=== PATIENT | male | born 1965 | race Caucasian/White ===

== ENCOUNTER 2019-12-26 15:08 | Observation (INO) | payer BC, OTHER ==
[~2019-12-26] VITALS: Ht 172.7 cm; Wt 98.6 kg
--- NOTE | 2019-12-26 15:22 | ED Abdominal Pain ---
General Stated Complaint: LOWER BACK PAIN, ABD PAIN Source of Information: Patient Exam Limitations: No Limitations History of Present Illness Date Seen by Provider: Dec 26, 2019 Time Seen by Provider: 15:22 Initial Comments 54-year-old male presents with abdominal pain. Feels like he has "a lot of gas" patient reports that it started around 11/24/29 this morning. The had some dry heaves I was little bit nauseated. He has some mild pain in his back. He reports had some dark urine. No fevers chills cough. Patient reports he is passing gas. He denies chest pain. Allergies and Home Medications Allergies Coded Allergies: No Known Drug Allergies (Unverified , 12/26/19) Home Medications Hydrocodone/Acetaminophen 1 Each Tablet, 1 EACH PO Q6H Prescribed by: EWELINA BEYER on 12/26/191735 Ondansetron 4 Mg Tab.rapdis, 4 MG PO Q6H PRN for NAUSEA/VOMITING Prescribed by: EWELINA BEYER on 12/26/191734 Sulfamethoxazole/Trimethoprim 1 Each Tablet, 1 EACH PO BID Prescribed by: EWELINA BEYER on 12/26/191734 Patient Home Medication List Home Medication List Reviewed: Yes Review of Systems Review of Systems Constitutional: No chills, No fever; malaise Respiratory: Denies Cough, Denies Shortness of Air Cardiovascular: Denies Chest Pain Gastrointestinal: Abdominal Pain, Nausea, Vomiting (dry heaves) Genitourinary: See HPI Musculoskeletal: back pain Skin: no symptoms reported Psychiatric/Neurological: No Symptoms Reported Endocrine: No Symptoms Reported Past Jgymjji-Xjlqln-Pvtaem Hx Past Med/Social Hx: Reviewed Nursing Past Med/Soc Hx Patient Social History Recent Foreign Travel: No Contact w/Someone Who Travel: No Physical Exam Vital Signs Vital Signs - First Documented 12/26/19 15:10 Temp 36.5 Pulse 86 Resp 18 B/P (MAP) 147/101 (116) Pulse Ox 97 Capillary Refill : Height/Weight/BMI Height: '" Weight: lbs. oz. kg; BMI Method: General Appearance: WD/WN, no apparent distress Respiratory: lungs clear, normal breath sounds Cardiovascular: normal peripheral pulses, regular rate, rhythm, no edema Gastrointestinal: soft; No rebound; tenderness (mild diffuse) Back: CVA tenderness (L) Neurologic/Psychiatric: alert, normal mood/affect, oriented x 3 Skin: normal color, warm/dry Progress/Results/Core Measures Results/Orders Lab Results Laboratory Tests Test 12/26/19 15:20 12/26/19 16:01 Range/Units White Blood Count 11.8 H 4.3-11.0 10^3/uL Red Blood Count 4.95 4.35-5.85 10^6/uL Hemoglobin 15.7 13.3-17.7 G/DL Hematocrit 45 40-54 % Mean Corpuscular Volume 91 80-99 FL Mean Corpuscular Hemoglobin 32 25-34 PG Mean Corpuscular Hemoglobin Concent 35 32-36 G/DL Red Cell Distribution Width 13.2 10.0-14.5 % Platelet Count 194 130-400 10^3/uL Mean Platelet Volume 10.2 7.4-10.4 FL Neutrophils (%) (Auto) 86 H 42-75 % Lymphocytes (%) (Auto) 5 L 12-44 % Monocytes (%) (Auto) 8 0-12 % Eosinophils (%) (Auto) 0 0-10 % Basophils (%) (Auto) 0 0-10 % Neutrophils # (Auto) 10.1 H 1.8-7.8 X 10^3 Lymphocytes # (Auto) 0.6 L 1.0-4.0 X 10^3 Monocytes # (Auto) 1.0 0.0-1.0 X 10^3 Eosinophils # (Auto) 0.0 0.0-0.3 10^3/uL Basophils # (Auto) 0.0 0.0-0.1 10^3/uL Neutrophils % (Manual) 88 % Lymphocytes % (Manual) 3 % Monocytes % (Manual) 9 % Eosinophils % (Manual) 0 % Basophils % (Manual) 0 % Band Neutrophils 0 % Blood Morphology Comment NORMAL Sodium Level 139 135-145 MMOL/L Potassium Level 3.8 3.6-5.0 MMOL/L Chloride Level 107 98-107 MMOL/L Carbon Dioxide Level 19 L 21-32 MMOL/L Anion Gap 13 5-14 MMOL/L Blood Urea Nitrogen 23 H 7-18 MG/DL Creatinine 1.49 H 0.60-1.30 MG/DL Estimat Glomerular Filtration Rate 49 BUN/Creatinine Ratio 15 Glucose Level 148 H 70-105 MG/DL Calcium Level 9.3 8.5-10.1 MG/DL Corrected Calcium 8.9 8.5-10.1 MG/DL Total Bilirubin 1.4 H 0.1-1.0 MG/DL Aspartate Amino Transf (AST/SGOT) 20 5-34 U/L Alanine Aminotransferase (ALT/SGPT) 17 0-55 U/L Alkaline Phosphatase 83 40-136 U/L Total Protein 7.3 6.4-8.2 GM/DL Albumin 4.5 3.2-4.5 GM/DL Urine Color YELLOW Urine Clarity CLEAR Urine pH 5.5 5-9 Urine Specific [place] >=1.030 1.016-1.022 Urine Protein 1+ H NEGATIVE Urine Glucose (UA) NEGATIVE NEGATIVE Urine Ketones 1+ H NEGATIVE Urine Nitrite NEGATIVE NEGATIVE Urine Bilirubin 1+ H NEGATIVE Urine Urobilinogen 0.2 < = 1.0 MG/DL Urine Leukocyte Esterase NEGATIVE NEGATIVE Urine RBC (Auto) 3+ H NEGATIVE Urine RBC 25-50 H /HPF Urine WBC 0-2 /HPF Urine Squamous Epithelial Cells NONE /HPF Urine Crystals NONE /LPF Urine Bacteria NEGATIVE /HPF Urine Casts NONE /LPF Urine Mucus MODERATE H /LPF Urine Culture Indicated NO My Orders Orders - EWELINA BEYER DO Comprehensive Metabolic Panel (12/26/19 15:23) Ua Culture If Indicated (12/26/19 15:23) Ed Iv/Invasive Line Start (12/26/19 15:23) Acute Abd Series (12/26/19 15:23) Cbc With Automated Diff (12/26/19 15:23) Ketorolac Injection (Toradol Injection) (12/26/19 15:30) Ed Iv/Invasive Line Start (12/26/19 15:23) Ns Iv 1000 Ml (Sodium Chloride 0.9%) (12/26/19 15:23) Manual Differential (12/26/19 15:20) Ct Abd/Pelvis Wo(Kidney Stone) (12/26/19 16:28) Ceftriaxone For Iv Use (Rocephin For I (12/26/19 17:30) Ketorolac Injection (Toradol Injection) (12/26/19 17:27) Medications Given in ED Current Medications Medications Dose Ordered Sig/Hawk Route Start Time Stop Time Status Last Admin Dose Admin Ceftriaxone Sodium 1000 mg/ Sterile Water 10 ml @ 200 mls/hr ONCE ONCE IV 12/26/19 17:30 12/26/19 17:32 DC 12/26/19 17:34 200 MLS/HR Ketorolac Tromethamine 15 mg ONCE ONCE IVP 12/26/19 15:30 12/26/19 15:31 DC 12/26/19 15:38 15 MG Vital Signs/I&O 12/26/19 12/26/19 15:10 17:44 Temp 36.5 36.5 Pulse 86 86 Resp 18 18 B/P (MAP) 147/101 (116) 147/101 (116) Pulse Ox 97 97 Diagnostic Imaging Comments [facility] [place], [place] NAME: NEDRA HUYNH [facility] REC#: [id number] PT STATUS: REG ER : 1965 PHYSICIAN: EWELINA BEYER DO ADMIT DATE: 12/26/19/ER Draft Date of Exam:12/26/19 ACUTE ABD SERIES INDICATION: Abdominal pain. COMPARISON: None. FINDINGS: Supine and upright views of the abdomen show a nondistended bowel gas pattern. No abnormal air fluid levels or free intraperitoneal air is seen. 7-8 mm extraosseous calcification is identified slightly lateral and superior to the right L3 transverse process. This is felt to potentially represent a calculus within the proximal right ureter. Bony and soft tissue structures are within normal limits. No organomegaly is identified. Accompanying upright chest shows normal heart size and pulmonary vascularity. The lungs are well aerated and clear. The mediastinum is normal in appearance. IMPRESSION: 1. Probable 7-8 mm calculus within the proximal right ureter. Correlation with CT is advised. 2. No acute cardiopulmonary process. Departure Communication (Admissions) Time/Spoke to Admitting Phy: 17:30 admit for observation Impression Primary Impression: Ureteral calculus, right Disposition: ADMITTED INPATIENT Condition: Stable Admissions Decision to Admit Reason: Admit from ER (General) Decision to Admit/Date: Dec 26, 2019 Time/Decision to Admit Time: 17:45 Departure-Patient Inst. Referrals: NO,LOCAL PHYSICIAN (PCP) Primary Care Physician BELINDA CARR MD Call first thing Sunday morning Patient Instructions: Kidney Stones (DC), Renal Colic Add. Discharge Instructions: Called Dr. Carr's office first thing Sunday morning Return to the ER if pain becomes unmanageable Scripts Hydrocodone/Acetaminophen (Hydrocodone-Acetamin 5-325 mg) 1 Each Tablet 1 EACH PO Q6H for Nausea/Vomiting, #20 TAB Prov: EWELINA BEYER DO 12/26/19 Sulfamethoxazole/Trimethoprim (Bactrim Ds Tablet) 1 Each Tablet 1 EACH PO BID for 7 Days, #14 TAB Prov: EWELINA BEYER DO 12/26/19 Ondansetron (Ondansetron Odt) 4 Mg Tab.rapdis 4 MG PO Q6H PRN for NAUSEA/VOMITING, #20 TAB 0 Refills Prov: EWELINA BEYER DO 12/26/19 Copy Copies To 1: BELINDA CARR MD, TREVOR L DO Dec 26, 2019 15:22
[2019-12-26] MEDS ORDERED: NS IV 1000 ML 1,000 ML IV SCH ×2 (15:23→19:00)
[2019-12-26 15:30] LABS: BASOPHILS % (AUTO) 0 % (0-10); EOSINOPHILS % (AUTO) 0 % (0-10); HEMATOCRIT 45 % (40-54); HEMOGLOBIN 15.7 G/DL (13.3-17.7); LYMPHOCYTES # (AUTO) 0.6 X 10^3 (1.0-4.0); LYMPHOCYTES % (AUTO) 5 % (12-44); MEAN CORPUSCULAR HEMOGLOBIN 32 PG (25-34); MEAN CORPUSCULAR HGB CONC 35 G/DL (32-36); MEAN CORPUSCULAR VOLUME 91 FL (80-99); MEAN PLATELET VOLUME 10.2 FL (7.4-10.4); MONOCYTES % (AUTO) 8 % (0-12); NEUTROPHILS # (AUTO) 10.1 X 10^3 (1.8-7.8); NEUTROPHILS % (AUTO) 86 % (42-75); PLATELET COUNT 194 10^3/uL (130-400); RED CELL DISTRIBUTION WIDTH 13.2 % (10.0-14.5); WHITE BLOOD COUNT 11.8 10^3/uL (4.3-11.0)
[2019-12-26] MEDS ORDERED: KETOROLAC 30 MG/ML VIAL IVP ONE (15:30)
[2019-12-26 15:41] LABS: ALBUMIN 4.5 GM/DL (3.2-4.5); POTASSIUM 3.8 MMOL/L (3.6-5.0)
[2019-12-26 15:43] LABS: CALCIUM 9.3 MG/DL (8.5-10.1)
[2019-12-26 15:44] LABS: TOTAL PROTEIN 7.3 GM/DL (6.4-8.2)
[2019-12-26 15:46] LABS: BILIRUBIN,TOTAL 1.4 MG/DL (0.1-1.0)
[2019-12-26 15:47] LABS: CREATININE SERUM 1.49 MG/DL (0.60-1.30)
[2019-12-26 16:04] LABS: BAND NEUTROPHILS 0 %; BASOPHILS % (MANUAL) 0 %; EOSINOPHILS % (MANUAL) 0 %; LYMPHOCYTES % (MANUAL) 3 %; MONOCYTES % (MANUAL) 9 %; NEUTROPHILS % (MANUAL) 88 %; RBC MORPH NORMAL
[2019-12-26 16:15] LABS: CLARITY,URINE CLEAR; COLOR,URINE YELLOW; GLUCOSE, URINE (UA) NEGATIVE (NEGATIVE); KETONES,URINE 1+ (NEGATIVE); LEUKOCYTE ESTERASE ,URINE NEGATIVE (NEGATIVE); NITRITE,URINE NEGATIVE (NEGATIVE); PH,URINE 5.5 (5-9); PROTEIN,URINE 1+ (NEGATIVE)
[2019-12-26 16:21] LABS: BILIRUBIN,URINE 1+ (NEGATIVE)
[2019-12-26 16:25] LABS: BACTERIA,URINE NEGATIVE /HPF; RBC,URINE 25-50 /HPF; WBC,URINE 0-2 /HPF
--- NOTE | 2019-12-26 16:29 | Diagnostic Imaging Report ---
INDICATION: Abdominal pain. COMPARISON: None. FINDINGS: Supine and upright views of the abdomen show a nondistended bowel gas pattern. No abnormal air fluid levels or free intraperitoneal air is seen. 7-8 mm extraosseous calcification is identified slightly lateral and superior to the right L3 transverse process. This is felt to potentially represent a calculus within the proximal right ureter. Bony and soft tissue structures are within normal limits. No organomegaly is identified. Accompanying upright chest shows normal heart size and pulmonary vascularity. The lungs are well aerated and clear. The mediastinum is normal in appearance. IMPRESSION: 1. Probable 7-8 mm calculus within the proximal right ureter. Correlation with CT is advised. 2. No acute cardiopulmonary process. Dictated by: Dictated on workstation # [id number]
--- NOTE | 2019-12-26 17:11 | Diagnostic Imaging Report ---
PROCEDURE: CT urinary tract, rule out kidney stone. TECHNIQUE: Multiple contiguous axial images were obtained through the abdomen and pelvis without the use of intravenous contrast. Auto Exposure Controls were utilized during the CT exam to meet ALARA standards for radiation dose reduction. INDICATION: Hematuria with bilateral flank pain. FINDINGS: The liver, gallbladder, and bile ducts are normal. The spleen, pancreas, and adrenals are normal. There is a 5 x 7 x 8 mm calculus in the proximal right ureter at or just past the ureteropelvic junction which is causing obstruction at this site. There is hydronephrosis. There is perinephric stranding of the right kidney. The distal right ureter is normal. The left kidney and ureter are normal. There are prostatic calcifications present. The appendix is normal. No acute bowel abnormality is seen. There is no ascites. There is no bony abnormality. IMPRESSION: There is a 5 x 7 x 8 mm calculus in the proximal right ureter, causing obstruction at this site. Dictated by: Dictated on workstation # [id number]
[2019-12-26] MEDS ORDERED: KETOROLAC 30 MG/ML VIAL IVP STA (17:27)
[2019-12-26] MEDS ORDERED: cefTRIAXone FOR IV USE 1,000 MG in WATER (STERILE) FOR INJECTION 10 ML IV ONE (17:30)
[2019-12-26] MEDS ORDERED: ONDA4TAB11 PO (17:35)
[2019-12-26] MEDS ORDERED: SULF1TAB35 PO (17:35)
[2019-12-26] MEDS ORDERED: HYDR-83 PO (17:35)
--- NOTE | 2019-12-26 17:50 | NUR ---
DR CARR CALLED AND HAS DECIDED FOR PT TO BE ADMITTED
[2019-12-26 18:33] VITALS: BP 146/85
[2019-12-26] MEDS ORDERED: ONDANSETRON 4 MG/2 ML (SDV) Z0FRAN IV PRN (19:00)
[2019-12-26] MEDS ORDERED: fentaNYL INJECTION 100 MCG/2 ML AMP IV PRN (19:00)
[2019-12-26 19:56] VITALS: BP 145/90
--- NOTE | 2019-12-26 20:10 | NUR ---
NEDRA HUYNH admitted to room 408-1, with an admitting diagnosis of kidney stone, on 12/26/19 from ER via wheel chair, accompanied by staff .NEDRA HUYNH introduced to surroundings, call light, bed controls, phone, TV, temperature control, lights, meal times, smoking policy, visitor policy, side rail policy, bathrooms and showers. Patient Rights given to patient in the handbook. NEDRA HUYNH verbalizes understanding that [facility] is not responsible for the loss or damage to any personal effects or valuables that are kept in the patients posession during their hospitalization. The following Patient Care Plans and discharge were discussed with the patient. NEDRA HUYHN verbalizes understanding of Interdisciplinary Patient Education. Patient and family were informed about the Rapid Response Team and its purpose.
--- NOTE | 2019-12-26 20:12 | NUR ---
patient had questions for Dr. Hickman - Dr. Hickman notified coming to address their questions tonight at 9pm
[2019-12-26] MEDS: KETOROLAC 15 MG/ML VIAL IV PRN (23:28)
[2019-12-26 23:50] VITALS: BP 145/81
[2019-12-27] VITALS (9 sets, daily range): BP systolic 96–122; BP diastolic 57–76
--- NOTE | 2019-12-27 01:39 | HISTORY AND PHYSICAL ---
DATE OF SERVICE: ADMISSION HISTORY AND PHYSICAL PRESENT HISTORY: A 54-year-old healthy man presented to the emergency room with abdominal pain and was found to have a 7 x 6 x [address] scan with hydronephrosis and confirmed by KUB to be around the right L3 transverse process. He received some pain medication and was admitted for definitive management. His white count was 11.8, creatinine 1.49 and EGFR 43. The patient denies any previous similar episodes or stones. FAMILY HISTORY: Stone problems. ALLERGIES: The patient has no known drug allergies. No medical illnesses. MEDICATIONS: He is on no medications. No aspirin, no blood thinners. PAST SURGICAL HISTORY: No previous surgeries. SOCIAL HISTORY: He is , has children. No smoking, except chew tobacco. No alcohol, no drugs. PHYSICAL EXAMINATION: VITAL SIGNS: Per chart. GENERAL: Well-nourished, well-developed in no acute distress at the time of examination. HEAD: Normocephalic. ENT: Unremarkable. NECK: Supple, no bruits. CHEST: Clear, nontender. HEART: Regular rate and rhythm, no murmur. ABDOMEN: Soft, no CVA tenderness. EXTREMITIES: Lower extremity, no edema or cyanosis. NEUROLOGIC: Grossly intact. Oriented x3. IMPRESSION: Right proximal ureteral stone with obstruction and pain. PLAN: Tomorrow, we will do cystoscopy with right ureteral stone manipulation and insertion of a stent, possible ureteroscopy with stone lithotripsy, basket or lithotomy. The procedure was fully explained to the patient and his . If we end up putting a stent, will bring him back in a couple of weeks when the ESWL machine is here to break up the stone. This was also explained to the patient and his . Job ID: [id number] DocumentID: [id number] Dictated Date: 12/26/2019 21:40:05 Head Of [employer] Date: 12/27/2019 01:38:34 Dictated By: BELINDA CARR MD
--- NOTE | 2019-12-27 07:57 | Diagnostic Imaging Report ---
Clinical indications: Followup right ureteral stone. Exam: KUB x-ray. Comparison: X-ray of the abdomen dated 12/26/2019. CT scan of the abdomen and pelvis performed without contrast dated 12/26/2019. Findings: Stable 8 mm calcification overlying the right medial abdominal region seen at the level of the L3 vertebra which correlates to stone in the proximal right ureter seen on comparison CT scan. There are no other abnormal calcifications overlying the abdomen seen. There is a nonobstructed bowel gas pattern. There is no evidence of abdominal free air. There are small degenerative spurs seen throughout the spine. Impression: 1: There is no significant change in position of the roughly 8 mm stone overlying the medial right abdominal region at the L3 level which correlates to a stone in the proximal right ureter seen on comparison CT scan. Dictated by: Dictated on workstation # [id number]
[2019-12-27] MEDS ORDERED: LIDOCAINE PF 2% 5 ML (XYLOCAINE) VIAL ONE (09:29)
[2019-12-27] MEDS ORDERED: ROCURONIUM 10 MG/ML 5 ML SYRINGE IV ONE (09:29)
[2019-12-27] MEDS ORDERED: fentaNYL INJECTION 100 MCG/2 ML AMP ONE (09:29)
[2019-12-27] MEDS ORDERED: proPOfol 200 MG/20 ML (DIPRIVAN) VIAL IV ONE (09:29)
[2019-12-27] MEDS ORDERED: SEVOFLURANE (ULTANE) 15 ML INHAL SOLN ONE (09:29)
[2019-12-27] MEDS ORDERED: DEXAMETHASONE 10 MG/ML (DECADRON) 1 ML VIAL ONE (09:29)
[2019-12-27] MEDS ORDERED: MIDAZOLAM 2 MG/2 ML (VERSED) VIAL ONE (09:29)
[2019-12-27] MEDS ORDERED: ONDANSETRON 4 MG/2 ML (SDV) Z0FRAN ONE (09:29)
--- NOTE | 2019-12-27 09:35 | Progress Note-Pre Operative ---
Pre-Operative Progress Note H&P Reviewed The H&P was reviewed, patient examined and no changes noted. Date Seen by Provider: Dec 27, 2019 Time Seen by Provider: 09:35 Date H&P Reviewed: Dec 27, 2019 Time H&P Reviewed: 09:35 Pre-Operative Diagnosis: RT PROXIMAL URETERAL STONE BELINDA CARR MD Dec 27, 2019 09:35
--- NOTE | 2019-12-27 09:36 | Progress Note-Post Operative ---
Post-Operative Progess Note Surgeon (s)/Cigarette Maker (s) Surgeon BELINDA CARR MD Cigarette Maker: NONE Pre-Operative Diagnosis RT PROXIMAL URETERAL STONE Post-Operative Diagnosis SAME Procedure & Operative Findings Date of Procedure 12/27/19 Procedure Performed/Findings CYSTOSCOPY, RT URETERAL STONE MANIPULATION, AND INSERTION OF RT STENT Anesthesia Type GENERAL Estimated Blood Loss Estimated blood loss (mL): NONE Specimens/Packing Specimens Removed NONE Packing: NONE BELINDA CARR MD Dec 27, 2019 09:36
--- NOTE | 2019-12-27 09:38 | NUR ---
PT LEAVING FLOOR VIA AKASH IN ROUTE TO OR, ACCOMPANIED BY OR STAFF. THIS RN WILL AWAIT PATIENTS RETURN TO FLOOR.
--- NOTE | 2019-12-27 09:38 | Discharge Inst-Urology ---
Discharge Inst-Urology Reconcile Patient Problems Problems Reviewed?: Yes Final Diagnosis RT PROXIMAL URETERAL STONE Patient Instructions/Follow Up Plan/Assessment/Instructions Patient to call office Sunday to schedule appointment with Thursday 01/04 to plan ESWL 01/06, KUB prior to office, has slip fro it. Increase oral fluids for 48 hours and then as needed. Diet and Activity as tolerated. If questions or concerns contact your physician Or seek help at emergency department. BELINDA CARR MD Dec 27, 2019 09:38
[2019-12-27] MEDS ORDERED: SUGAMMADEX 500 MG/5 ML VIAL (BRIDION) IV ONE (10:04)
[2019-12-27] MEDS ORDERED: HYDROmorphone 2 MG/ML VIAL (DILAUDID) IV ONE (10:30)
[2019-12-27] MEDS ORDERED: ONDANSETRON 4 MG/2 ML (SDV) Z0FRAN IVP PRN (10:30)
--- NOTE | 2019-12-27 11:04 | Diagnostic Imaging Report ---
CLINICAL INDICATIONS: Performed right cystoscopy in OR with double-J stent placed. EXAM: There are 3 limited intraoperative fluoroscopic images of the abdomen and pelvis region. COMPARISON: CT scan of the abdomen and pelvis without contrast dated 12/26/2019. FINDINGS AND IMPRESSION: Catheter seen overlying the pelvis. Ureteral stent is seen overlying the right side. Please see clinician's report for more detail. Fluoroscopy was provided for clinician and a total of 46.7 seconds and 14.64 mGy was provided. Dictated by: Dictated on workstation # [id number]
--- NOTE | 2019-12-27 11:05 | OPERATIVE REPORT ---
DATE OF SERVICE: 12/27/2019 PREOPERATIVE DIAGNOSIS: Right proximal ureteral stone. POSTOPERATIVE DIAGNOSIS: Right proximal ureteral stone. OPERATION PERFORMED: Cystoscopy with right ureteral stone manipulation and insertion of stent. SURGEON: Moncho Carr MD ANESTHESIA: General. COMPLICATIONS: None. DESCRIPTION OF PROCEDURE: Under satisfactory general anesthesia, the patient in lithotomy position, genitalia were prepped and draped in the usual sterile fashion. A 23-Macedonian cystoscope was introduced under vision. The anterior urethra was normal. The prostate was nonobstructing. The bladder neck was open. The bladder was entered, it was normal except for sluggish efflux on the right side. Using the foroblique lens, I passed first a 5-Macedonian ureteral catheter bypassed the stone all the way up to the kidney. I removed it and then I passed a 6-Macedonian 26 cm double-J stent guided fluoroscopically, bypassed the stone easily all the way to the kidney. I removed the guidewire and the stent was seen jetting nicely proximally fluoroscopically and distally endoscopically. The bladder was evacuated, and the cystoscope was removed. The patient tolerated the procedure and anesthesia well and was sent to recovery room in stable condition. PLAN: We will let him go home today. Instructions were given to the . I will see him back on Sunday01/05/2020. He is to call this Sunday for scheduling this appointment and to plan ESWL on Sunday the . This plan was fully explained to his . Job ID: [id number] DocumentID: [id number] Dictated Date: 12/27/2019 10:40:58 Ice Crusher Date: 12/27/2019 11:04:05 Dictated By: MONCHO CARR MD
--- NOTE | 2019-12-27 11:20 | NUR ---
PT TO ROOM 408 VIA STRETCHER, ACCOMPANIED BY SHERON ALDRIDGE RN. REPORT RECEIVED. PT AT BEDSIDE. THIS RN WILL ASSUME PT CARE AT THIS TIME.
[2019-12-27] MEDS: KETOROLAC 15 MG/ML VIAL IV PRN (12:31)
--- NOTE | 2019-12-27 17:04 | Anesthesia-General Post-Op ---
General Patient Condition Mental Status/LOC: Same as Preop Cardiovascular: Satisfactory Nausea/Vomiting: Absent Respiratory: Satisfactory Pain: Controlled Complications: Absent Post Op Complications Complications None Follow Up Care/Instructions Patient Instructions None needed. Anesthesia/Patient Condition Patient Condition Patient is doing well, no complaints, stable vital signs, no apparent adverse anesthesia problems. No complications reported per nursing. D/C home per [facility] [place] Criteria: Yes BRITNI AMADOR CRNA Dec 27, 2019 17:04
--- NOTE | 2019-12-29 07:58 | Anesthesia-General Post-Op ---
General Patient Condition Mental Status/LOC: Same as Preop Cardiovascular: Satisfactory Nausea/Vomiting: Absent Respiratory: Satisfactory Pain: Controlled Complications: Absent Post Op Complications Complications None Follow Up Care/Instructions Patient Instructions None needed. Anesthesia/Patient Condition Patient Condition Patient is doing well, no complaints, stable vital signs, no apparent adverse anesthesia problems. No complications reported per nursing. D/C home per [facility] [place] Criteria: Yes MARY BUENO CRNA Dec 29, 2019 07:58
== END 2019-12-27 12:50 | disposition home or self-care (01) ==
LOC: ER 15:10 → 4TH 17:45
PROVIDERS: ADMIT Urology; ATTEND Urology
DX: N20.1 Calculus of ureter (principal); Z79.891 Long term (current) use of opiate analgesic; Z79.899 Other long term (current) drug therapy
CPT/HCPCS: 36415; 74018; 74022; 74176; 76000; 80053; 81000; 85007; 85027; 87081; G0378

== ENCOUNTER 2020-01-05 14:03 | Outpatient (RCR) | payer BC ==
[~2020-01-05] VITALS: Ht 175.3 cm; Wt 98.6 kg
[~2020-01-05 14:03] MED LIST changes: -TMSL.4C PO; -TRM50T PO
[2020-01-05] MEDS ORDERED: TMSL.4C PO (14:42)
== END 2020-01-05 14:57 | disposition home or self-care (01) ==
LOC: PREOP 14:03
PROVIDERS: ATTEND Urology
DX: Z01.818 Encounter for other preprocedural examination (principal)

== ENCOUNTER → 2020-01-05 | Outpatient (CLI) | payer BC ==
[~2020-01-05] MED LIST: HYDR-83 PO; ONDA4TAB11 PO; SULF1TAB35 PO; TMSL.4C PO; TRM50T PO
--- NOTE | 2020-01-05 14:53 | Diagnostic Imaging Report ---
INDICATION: Postop FINDINGS: Right-sided double-J stent has been placed. Radiopacity presumed. The previously noted calculus projects over the stent at the L2-L3 disc space level. IMPRESSION: 1. Right ureteral calculus again noted. There has been placement of a double-J stent, the device projecting in good alignment. Dictated by: Dictated on workstation # [id number]
== END ==
LOC: RAD 12:18
PROVIDERS: ATTEND Urology
DX: N20.1 Calculus of ureter (principal); Z98.890 Other specified postprocedural states; Z96.0 Presence of urogenital implants
CPT/HCPCS: 74018

== ENCOUNTER 2020-01-07 07:18 | Day surgery (SDC) | payer BC ==
[~2020-01-07] VITALS: Ht 177.8 cm; Wt 98.6 kg
[2020-01-07] VITALS (9 sets, daily range): BP systolic 108–135; BP diastolic 65–91
[~2020-01-07 07:18] MED LIST changes: +TMSL.4C PO
--- OUTSIDE RECORDS SUMMARY | 2020-01-07 07:23 | XMS REPORT | Continuity of Care Document ---
Author Organization Unknown Address Unknown Phone Unavailable Allergies Active Description Code Type Severity Reaction Onset Reported/Identified Relationship to Patient Clinical Status Yes No Known Drug Allergies [id number] Drug Allergy Unknown N/A 12/26/2019 Medications There is no data. 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 Results Test Result Range Complete blood count (CBC) with automate d white blood cell (WBC) differential - 12/26/19 15:20 Blood leukocytes automated count (number/volume) 11.8 10*3/uL 4.3-11.0 Blood erythrocytes automated count (number/volume) 4.95 10*6/uL 4.35-5.85 Venous blood hemoglobin measurement (mass/volume) 15.7 g/dL 13.3-17.7 Blood hematocrit (volume fraction) 45 % 40-54 Automated erythrocyte mean corpuscular volume 91 [ foz_us] 80-99 Automated erythrocyte mean corpuscular h emoglobin (mass per erythrocyte) 32 pg 25-34 Automated erythrocyte mean corpuscular h emoglobin concentration measurement (mass/volume) 35 g/dL 32-36 Automated erythrocyte distribution width ratio 13. 2 % 10.0- 14.5 Automated blood platelet count (count/volume) 194 10*3/uL 130-400 Automated blood platelet mean volume measurement 10.2 [foz_us] 7.4-10.4 Automated blood neutrophils/100 leukocytes 86 % 42-75 Automated blood lymphocytes/100 leukocytes 5 % 12-44 Blood monocytes/100 leukocytes 8 % 0-12 Automated blood eosinophils/100 leukocytes 0 % 0-10 Automated blood basophils/100 leukocytes 0 % 0-10 Blood neutrophils automated count (number/volume) 10.1 10*3 1.8-7.8 Blood lymphocytes automated count (number/volume) 0.6 10*3 1.0-4.0 Blood monocytes automated count (number/volume) 1. 0 10*3 0.0-1.0 Automated eosinophil count 0.0 10*3/uL 0 .0-0.3 Automated blood basophil count (count/volume) 0.0 10*3/uL 0.0-0.1 Comprehensive metabolic panel - 12/26/19 15:20 Serum or plasma sodium measurement (moles/volume) 139 mmol/L 135-145 Serum or plasma potassium measurement (moles/volume) 3.8 mmol/L 3.6-5.0 Serum or plasma chloride measurement (moles/volume) 107 mmol/L 98-107 Carbon dioxide 19 mmol/L 21-32 Serum or plasma anion gap determination (moles/volume) 13 mmol/L 5-14 Serum or plasma urea nitrogen measurement (mass/volume ) 23 mg/dL 7-18 Serum or plasma creatinine measurement (mass/volume) 1.49 mg/dL 0.60-1.30 Serum or plasma urea nitrogen/creatinine mass ratio 15 NRG Serum or plasma creatinine measurement w ith calculation of estimated glomerular filtration rate 49 NRG Serum or plasma glucose measurement (mass/volume) 148 mg/dL 70-105 Serum or plasma calcium measurement (mass/volume) 9.3 mg/dL 8.5-10.1 Serum or plasma total bilirubin measurement (mass/volu me) 1.4 mg/dL 0.1-1.0 Serum or plasma alkaline phosphatase sussy surement (enzymatic activity/volume) 83 U/L 40-136 Serum or plasma aspartate aminotransfera se measurement (enzymatic activity/volume) 20 U/L 5-34 Serum or plasma alanine aminotransferase measurement (enzymatic activity/volume) 17 U/L 0-55 Serum or plasma protein measurement (mass/volume) 7.3 g/dL 6.4-8.2 Serum or plasma albumin measurement (mass/volume) 4.5 g/dL 3.2-4.5 CALCIUM CORRECTED 8.9 mg/dL 8.5-10.1 Manual absolute plasma cell count - 12/09 15:20 Blood monocytes/100 leukocytes 9 % NRG Manual blood segmented neutrophils/100 leukocytes 88 % NRG Blood band neutrophils/100 leukocytes 0 % NRG Manual blood lymphocytes/100 leukocytes 3 % NRG Manual eosinophils/100 leukocytes in nose 0 % NRG Manual blood basophils/100 leukocytes 0 % NRG Blood erythrocyte morphology finding identification NORMAL NRG Complete urinalysis with reflex to cultu re - 12/26/19 16:01 Urine color determination YELLOW NRG Urine clarity determination CLEAR NR G Urine pH measurement by test strip 5.5 5-9 Specific gravity of urine by test strip >= 1.016-1.022 Urine protein assay by test strip, semi-quantitative 1+ NEGATIVE Urine glucose detection by automated test strip NE GATIVE NEGATIVE Erythrocytes detection in urine sediment by light micr oscopy 3+ NEGATIVE Urine ketones detection by automated test strip 1+ NEGATIVE Urine nitrite detection by test strip NEGATIVE NEGATIVE Urine total bilirubin detection by test strip 1+ NEGATIVE Urine urobilinogen measurement by automated test strip (mass/volume) 0.2 mg/dL < = 1.0 Urine leukocyte esterase detection by dipstick NEG ATIVE NEGATIVE Automated urine sediment erythrocyte cou nt by microscopy (number/high power field) [HPF] NRG Automated urine sediment leukocyte count by microscopy (number/high power field) [HPF] NRG Bacteria detection in urine sediment by light microsco py NEGATIVE NRG Squamous epithelial cells detection in u rine sediment by light microscopy NONE NRG Crystals detection in urine sediment by light microsco py NONE NRG Casts detection in urine sediment by light microscopy NONE NRG Mucus detection in urine sediment by light microscopy MODERATE NRG Complete urinalysis with reflex to culture NO NRG Methicillin resistant Staphylococcus aur eus (MRSA) screening culture - 12/26/19 20:50 Methicillin resistant Staphylococcus aureus (MRSA) scr eening culture NEG NRG Encounters ACCT No. Visit Date/Time Discharge Status Pt. Type Provider Facility Loc./Unit Complaint [id number] 01/05/2020 14:03:00 020 14:57:00 DIS Outpatient BELINDA CARR MD [facility] PREOP RIGHT URETEAL STONE [id number] 12/26/2019 17:45:00 020 12:50:00 DIS Outpatient BELINDA CARR MD [facility] 4TH KIDNEY STONE WITH OBSTR UCTION [id number] 01/05/2020 12:18:[address] Outpatient BRUNO RAMIREZ, BELINDA Rodríguez [facility] RAD URTERAL STONE
[2020-01-07] MEDS ORDERED: LACTATED RINGERS 1,000 ML IV PRN (07:32)
--- NOTE | 2020-01-07 07:36 | Progress Note-Pre Operative ---
Pre-Operative Progress Note H&P Reviewed The H&P was reviewed, patient examined and no changes noted. Date Seen by Provider: Jan 07, 2020 Time Seen by Provider: 08:10 Date H&P Reviewed: Jan 07, 2020 Time H&P Reviewed: 08:10 Pre-Operative Diagnosis: RT PROXIMAL URETERAL STONE BELINDA CARR MD Jan 07, 2020 07:36
--- NOTE | 2020-01-07 07:37 | Progress Note-Post Operative ---
Post-Operative Progess Note Surgeon (s)/Clinical Administrative Coordinator (s) Surgeon BELINDA CARR MD Clinical Administrative Coordinator: NONE Pre-Operative Diagnosis RT PROXIMAL URETERAL STONE Post-Operative Diagnosis SAME Procedure & Operative Findings Date of Procedure 01/07/20 Procedure Performed/Findings RT ESWL AND CYSTO WITH REMOVAL OF STENT Anesthesia Type GENERAL Estimated Blood Loss Estimated blood loss (mL): NONE Specimens/Packing Specimens Removed NONE Packing: NONE BELINDA CARR MD Jan 07, 2020 07:37
--- NOTE | 2020-01-07 07:39 | Discharge Inst-Urology ---
Discharge Inst-Urology Reconcile Patient Problems Problems Reviewed?: Yes Final Diagnosis RT PROXIMAL URETERAL STONE Patient Instructions/Follow Up Plan/Assessment/Instructions Please make appointment to been seen in office Thursday 01/18. KUB prior to it KUB on way home Post ESWL instructions Increase oral fluids for 48 hours and then as needed. Diet and Activity as tolerated. If questions or concerns contact your physician Or seek help at emergency department. BELINDA CARR MD Jan 07, 2020 07:39
[2020-01-07] MEDS ORDERED: CATHETER FLUSH 10 ML SYR IV PRN (07:45)
[2020-01-07] MEDS ORDERED: cefTRIAXone FOR IV USE 1,000 MG in WATER (STERILE) FOR INJECTION 10 ML IV ONE (07:45)
--- NOTE | 2020-01-07 07:58 | Diagnostic Imaging Report ---
REASON FOR EXAM: ESWL. Right-sided pain. COMPARISON: 01/05/2020. TECHNIQUE: frontal supine view of the abdomen FINDINGS: Double-J ureteral stent is again seen on the right. The previously visualized calculus in the right ureter is not well appreciated on today's exam. No new focal areas of opacity are seen to suggest additional calculi. The osseous structures are unremarkable. IMPRESSION: Previously visualized calculus in the right ureter is not well seen on today's exam and may represent passed stone. The right ureteral stent remains in place. Dictated by: Dictated on workstation # [id number]
[2020-01-07] MEDS ORDERED: ONDANSETRON 4 MG/2 ML (SDV) Z0FRAN ONE (09:33)
[2020-01-07] MEDS ORDERED: LIDOCAINE PF 2% 5 ML (XYLOCAINE) VIAL ONE (09:33)
[2020-01-07] MEDS ORDERED: DEXAMETHASONE 10 MG/ML (DECADRON) 1 ML VIAL ONE (09:33)
[2020-01-07] MEDS ORDERED: proPOfol 200 MG/20 ML (DIPRIVAN) VIAL IV ONE (09:33)
[2020-01-07] MEDS ORDERED: MIDAZOLAM 2 MG/2 ML (VERSED) VIAL ONE (09:34)
[2020-01-07] MEDS ORDERED: fentaNYL INJECTION 100 MCG/2 ML AMP ONE (09:34)
[2020-01-07] MEDS ORDERED: SEVOFLURANE (ULTANE) 15 ML INHAL SOLN ONE (10:29)
[2020-01-07] MEDS ORDERED: HYDROmorphone 2 MG/ML VIAL (DILAUDID) IV ONE ×2 (10:45→11:15)
[2020-01-07] MEDS ORDERED: ONDANSETRON 4 MG/2 ML (SDV) Z0FRAN IVP PRN ×2 (10:45→11:15)
[2020-01-07] MEDS ORDERED: TRM50T PO (11:58)
[2020-01-07] MEDS ORDERED: SULF1TAB35 PO (11:58)
--- NOTE | 2020-01-07 12:21 | Diagnostic Imaging Report ---
INDICATION: Status post lithotripsy. Time of exam 12:19 PM Correlation is made with prior radiograph from earlier the same day. Right-sided double-J nephroureteral stent has been removed. No definite radiopaque urinary tract calculi are seen. Bowel gas pattern is unremarkable. IMPRESSION: Right ureteral stent removal. No ureteral calculi are detected. Dictated by: Dictated on workstation # [id number]
--- NOTE | 2020-01-07 12:28 | OPERATIVE REPORT ---
DATE OF SERVICE: 01/07/2020 PREOPERATIVE DIAGNOSIS: Right proximal ureteral stone. POSTOPERATIVE DIAGNOSIS: Right proximal ureteral stone. OPERATION PERFORMED: Right ESWL and cystoscopy with removal of right ureteral stent. SURGEON: Moncho Carr MD ANESTHESIA: General. COMPLICATIONS: None. DESCRIPTION OF PROCEDURE: Under satisfactory general anesthesia, the patient in supine position on the ESWL table, the right proximal ureteral stone was localized. Shocks were delivered at kV of 6 for a total of 3000 shocks. We removed the stent cystoscopically in the middle of the procedure, we prepped the patient, inserted the flexible cystoscope, visualized the distal end of the stent, grasped with grasping forceps and totally removed it. After doing so, we really did not see much of the stone anymore, which seems to have been fragmented well. We proceeded for a total of 3000 as mentioned at kV of 6. The patient received 30 mg of Toradol and 40 mg of Lasix IV at the end of the procedure. He tolerated the procedure and anesthesia well and was sent to recovery room in stable condition. Job ID: [id number] DocumentID: [id number] Dictated Date: 01/07/2020 10:22:28 Business Instructor Date: 01/07/2020 12:26:49 Dictated By: MONCHO ACRR MD
--- NOTE | 2020-01-07 12:30 | NUR ---
PATIENT AND INFORMED THEY WOULD CALL TO CHANGE FOLLOW UP APPOINTMENT TO THURSDAY 01/18. CHANGED ORDERS AND NO ANSWER AT OFFICE CALLED 4 TIMES WITH NO ANSWER
--- NOTE | 2020-01-08 14:48 | Anesthesia-General Post-Op ---
General Patient Condition Mental Status/LOC: Same as Preop Cardiovascular: Satisfactory Nausea/Vomiting: Absent Respiratory: Satisfactory Pain: Controlled Complications: Absent Post Op Complications Complications None Follow Up Care/Instructions Patient Instructions None needed. Anesthesia/Patient Condition Patient Condition Patient is doing well, no complaints, stable vital signs, no apparent adverse anesthesia problems. No complications reported per nursing. [place] [facility] [place]: Yes BRITNI AMADOR CRNA Jan 08, 2020 14:48
== END 2020-01-07 12:35 | disposition home or self-care (01) ==
LOC: SDC 07:18
PROVIDERS: ATTEND Urology
DX: N20.1 Calculus of ureter (principal); F17.220 Nicotine dependence, chewing tobacco, uncomplicated; Z20.828 Contact with and (suspected) exposure to other viral communicable diseases
CPT/HCPCS: 50590; 52310; 74018; 87081; U0002; 87635

== ENCOUNTER → 2020-01-19 | Outpatient (CLI) | payer BC ==
[~2020-01-19] MED LIST changes: +TRM50T PO
--- NOTE | 2020-01-19 14:24 | Diagnostic Imaging Report ---
INDICATION: Ureteral calculus. There is a linear opaque calculus projecting over the right mid ureter above the level of the L3 transverse process measures 6 mm in length and 1.8 mm in diameter. IMPRESSION: Right mid ureteral calculus. Dictated by: Dictated on workstation # [id number]
== END ==
LOC: RAD 13:22
PROVIDERS: ATTEND Urology
DX: N20.1 Calculus of ureter (principal)
CPT/HCPCS: 74018

== ENCOUNTER → 2020-01-29 | Outpatient (CLI) | payer BC | LOC: LABNPT 16:18 | PROVIDERS: ATTEND Urology | DX: N20.1 Calculus of ureter (principal) | CPT/HCPCS: 82140; 82340; 82507; 82570; 83735; 83945; 83986; 84105; 84133; 84300; 84392; 84560 ==

== ENCOUNTER → 2020-02-17 | Outpatient (CLI) | payer BC ==
[~2020-02-17] MED LIST changes: +HYDR-3812 PO; -HYDR-83 PO
--- NOTE | 2020-02-17 13:32 | Diagnostic Imaging Report ---
EXAMINATION: Abdomen 1214h. INDICATION: Post ESWL The previous abdomen exam of 01/19/2020 noted a linear 1.8 x 6.6 mm radiopaque calculus overlying the right transverse process of L3. That finding is again evident on this exam. The calculus now lies just inferior to the right transverse process of L3. By my measurements the calculus measures approximately 7.2 x 6.8 mm. The overall appearance of the abdomen is otherwise no different. IMPRESSION: The calculus overlying the expected path of the right ureter seen previously is again evident. The calculus does measure larger than on the prior exam. This may be secondary to the positioning of a calculus within the ureter. A calculus is essentially unchanged in position when compared to the prior exam. Dictated by: Dictated on workstation # [id number]
== END ==
LOC: RAD 11:54
PROVIDERS: ATTEND Urology
DX: N20.1 Calculus of ureter (principal); Z98.890 Other specified postprocedural states
CPT/HCPCS: 74018

== ENCOUNTER → 2020-03-01 | Outpatient (CLI) | payer BC ==
[~2020-03-01] MED LIST changes: +NITR-65 PO
--- NOTE | 2020-03-01 14:30 | Diagnostic Imaging Report ---
INDICATION: Right ureteric stone 0.7 cm calcification is again seen to the right of the spine at L3-L4 level. This may reside in the proximal right ureter. This has shown no significant change compared to previous examination. No other definite pathologic abdominal calcification is noted. IMPRESSION: No significant change in positioning of 0.7 cm calcification in the expected location of the proximal right ureter. Dictated by: Dictated on workstation # [id number]
== END ==
LOC: RAD 13:57
PROVIDERS: ATTEND Urology
DX: N20.1 Calculus of ureter (principal)
CPT/HCPCS: 74018

== ENCOUNTER 2020-03-02 05:31 | Outpatient (CLI) | payer BC ==
[~2020-03-02] VITALS: Ht 177.8 cm; Wt 98.6 kg
[~2020-03-02 05:31] MED LIST changes: -NITR-65 PO
[2020-03-03] MEDS ORDERED: NITR-65 PO (13:02)
[2020-03-03] MEDS ORDERED: TMSL.4C PO (13:04)
[2020-03-03] MEDS ORDERED: TRM50T PO (13:04)
== END 2020-03-02 13:02 | disposition home or self-care (01) ==
LOC: PREOP 05:31
PROVIDERS: ATTEND Urology
DX: Z01.818 Encounter for other preprocedural examination (principal)

== ENCOUNTER 2020-03-03 07:50 | Day surgery (SDC) | payer BC ==
[~2020-03-03] VITALS: Ht 177.8 cm; Wt 98.6 kg
[2020-03-03] VITALS (10 sets, daily range): BP systolic 111–145; BP diastolic 66–96
--- OUTSIDE RECORDS SUMMARY | 2020-03-03 07:56 | XMS REPORT | Continuity of Care Document ---
Author Organization Unknown Address Unknown Phone Unavailable Allergies Active Description Code Type Severity Reaction Onset Reported/Identified Relationship to Patient Clinical Status Yes No Known Drug Allergies [id number] Drug Allergy Unknown N/A 01/07/2020 Medications There is no data. 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 12/27/2019 BELINDA CARR MD Ot Z79.8 99 OTHER CASH CLERK (CURRENT) DRUG THERAPY 01/05/2020 BELINDA CARR MD Ot Z01.8 18 ENCOUNTER FOR OTHER PREPROCEDURAL EXAMIN 01/07/2020 BELINDA CARR MD Ot F17.2 20 NICOTINE DEPENDENCE, CHEWING TOBACCO, UN 01/07/2020 BELINDA CARR MD Ot N20.1 CALCULUS OF URETER 01/07/2020 BELINDA CARR MD Ot Z20.8 28 CONTACT W AND EXPOSURE TO OTH VIRAL COMM 01/08/2020 BELINDA CARR MD Ot N20.1 CALCULUS OF URETER 01/08/2020 BELINDA CARR MD Ot Z96.0 PRESENCE OF UROGENITAL IMPLANTS 01/08/2020 BELINDA CARR MD Ot Z98.8 90 OTHER SPECIFIED POSTPROCEDURAL STATES 01/11/2020 BRUNO MD, BELINDA A Ot N20.1 CALCULUS OF URETER 01/11/2020 BRUNO RAMIREZ, BELINDA Nugent Ot Z96.0 PRESENCE OF UROGENITAL IMPLANTS 01/11/2020 BRUNO RAMIREZ, BELINDA Nugent Ot Z98.8 90 OTHER SPECIFIED POSTPROCEDURAL STATES 01/11/2020 BRUNO RAMIREZ, BELINDA Nugent Ot F17.2 20 NICOTINE DEPENDENCE, CHEWING TOBACCO, UN 01/11/2020 BRUNO RAMIREZ, BELINDA Nugent Ot N20.1 CALCULUS OF URETER 01/11/2020 BRUNO RAMIREZ, BELINDA Nugent Ot Z20.8 28 CONTACT W AND EXPOSURE TO OTH VIRAL COMM 01/12/2020 BRUNO RAMIREZ, BELINDA Nugent Ot F17.2 20 NICOTINE DEPENDENCE, CHEWING TOBACCO, UN 01/12/2020 BRUNO RAMIREZ, BELINDA Nugent Ot N20.1 CALCULUS OF URETER 01/12/2020 BRUNO RAMIREZ, BELINDA Nugent Ot Z20.8 28 CONTACT W AND EXPOSURE TO OTH VIRAL COMM 01/12/2020 BRUNO RAMIREZ, BELINDA Nugent Ot F17.2 20 NICOTINE DEPENDENCE, CHEWING TOBACCO, UN 01/12/2020 BRUNO RAMIREZ, BELINDA Nugent Ot N20.1 CALCULUS OF URETER 01/12/2020 BRUON RAMIREZ, BELINDA Nugent Ot Z20.8 28 CONTACT W AND EXPOSURE TO OTH VIRAL COMM 01/21/2020 BRUNO RAMIREZ, BELINDA Nugent Ot N20.1 CALCULUS OF URETER 01/21/2020 BRUNO RAMIREZ, BELINDA Nugent Ot N20.1 CALCULUS OF URETER 02/02/2020 BRUNO RAMIREZ, BELINDA Nugent Ot N20.1 CALCULUS OF URETER 02/06/2020 BRUNO RAMIREZ, BELINDA Nugent Ot N20.1 CALCULUS OF URETER 02/10/2020 BRUNO RAMIREZ, BELINDA Nugent Ot N20.1 CALCULUS OF URETER 02/14/2020 BRUNO RAMIREZ, BELINDA Nugent Ot N20.1 CALCULUS OF URETER 02/18/2020 BRUNO RAMIREZ, BELINDA Nugent Ot N20.1 CALCULUS OF URETER 02/18/2020 BRUNO RAMIREZ, BELINDA Nugent Ot Z98.8 90 OTHER SPECIFIED POSTPROCEDURAL STATES 03/01/2020 BRUNO RAMIREZ, BELINDA Nugent Ot N20.1 CALCULUS OF URETER 03/01/2020 BRUNO RAMIREZ, BELINDA Nugent Ot Z96.0 PRESENCE OF UROGENITAL IMPLANTS 03/01/2020 BRUNO RAMIREZ, BELINDA Nugent Ot Z98.8 90 OTHER SPECIFIED POSTPROCEDURAL STATES 03/01/2020 BELINDA CARR MD, Ot N20.1 CALCULUS OF URETER 03/01/2020 BELINDA CARR MD, Ot N20.1 CALCULUS OF URETER 03/01/2020 BELINDA CARR MD, Ot N20.1 CALCULUS OF URETER 03/01/2020 BRUNO RAMIREZ, BELINDA Nugent Ot Z98.8 90 OTHER SPECIFIED POSTPROCEDURAL STATES Procedures There is no data. Results Test [...] aureus (MRSA) scr eening culture NEG NRG Methicillin resistant Staphylococcus aur eus (MRSA) screening culture - 01/07/20 07:44 Methicillin resistant Staphylococcus aureus (MRSA) scr eening culture NEG NRG Coronavirus SARS-CoV-2 SO 2019 - 0 09:48 Coronavirus Ab [Units/volume] in Serum Negative Negative Measurement of weight of kidney stone - 01/19/20 14:31 Measurement of weight of kidney stone 2 % NRG Kidney stone composition determination See Note NRG Count of number of calculi 4 NRG Size of stone 1 to 4 NRG CD3+CD4+ (T4 helper) cells/100 cells in blood - 01/28/20 09:40 Timed urine calcium measurement (mass/volume) 193 % <250.0 Urine oxalate detection 27 <45 Urine uric acid measurement (mass/volume) 170 % <700 Urine citrate measurement (mass/volume) 674 % >320 Urine pH measurement 5.2 5.5-7.0 24 hour urine specimen volume measurement 1.27 % >2.00 Sodium urate/total calculus mass ratio by infrared spe ctroscopy 181 % <200 Sulfites [presence] in urine by test strip 20 <30 Urine phosphate measurement (mass/volume) 1044 % <1100 Urine magnesium measurement (mass/volume) 92 % >60.0 Urine calcium oxalate measurement 1.65 <2.00 Urine calcium phosphate crystals detecti on by computer assisted method 0.46 <2.00 24 hour urine sodium urate (saturation fraction) 0 .65 <2.00 Triple phosphate crystals detection in u rine sediment by light microscopy 0.04 <75.00 24 hour urine uric acid (saturation fraction) 1.73 <2.00 Urine ammonium measurement 37 % 14- 62 24 hour urine creatinine measurement (mass/time) 1 822 % 800- 2000 Clinical silverware supervisor review of results See Below NR STONE RISK POTASSIUM 39 % 19-135 Encounters ACCT No. Visit Date/Time Discharge Status Pt. Type Provider Facility Loc./Unit Complaint [id number] 02/17/2020 11:54:00 23:59:59 CLS Outpatient BELINDA CARR MD [facility] RAD URETERAL STONE [id number] 01/29/2020 16:18:00 23:59:59 CLS Outpatient BELINDA CARR MD [facility] LABNPT [id number] 01/19/2020 13:22:00 23:59:59 TAYLOR Outpatient BELINDA CARR MD [facility] RAD URETERAL STONE [id number] 01/07/2020 07:18:00 12:35:00 DIS Outpatient BELINDA CARR MD [facility] SDC RIGHT URETERAL STONE [id number] 01/05/2020 12:18:00 23:59:59 CLS Outpatient BELINDA CARR MD [facility] RAD URTERAL STONE [id number] 01/05/2020 14:03:00 14:57:00 DIS Outpatient BELINDA CARR MD [facility] PREOP RIGHT URETEAL STONE [id number] 12/26/2019 17:45:00 06/06/2 020 12:50:00 DIS Inpatient BRUNO RAMIREZ, BELINDA Nugent [facility] 4TH KIDNEY STONE WITH OBSTR UCTION [id number] 03/01/2020 13:57:[address] Outpatient BELINDA CARR MD [facility] RAD STONES
--- NOTE | 2020-03-03 08:01 | Progress Note-Pre Operative ---
Pre-Operative Progress Note H&P Reviewed The H&P was reviewed, patient examined and no changes noted. Date Seen by Provider: Mar 03, 2020 Time Seen by Provider: 08:01 Date H&P Reviewed: Mar 03, 2020 Time H&P Reviewed: 08:01 Pre-Operative Diagnosis: RT PROXIMAL URETERAL STONE BELINDA CARR MD Mar 03, 2020 08:01
--- NOTE | 2020-03-03 08:07 | Progress Note-Post Operative ---
Post-Operative Progess Note Surgeon (s)/Fashion Marketer (s) Surgeon BELINDA CARR MD Fashion Marketer: NONE Pre-Operative Diagnosis RT PROXIMAL URETERAL STONE Post-Operative Diagnosis SAME Procedure & Operative Findings Date of Procedure 03/03/20 Procedure Performed/Findings CYSTOSCOPY WITH URETERAL STONE MANIPULATION, RT RETROGRADE UROGRAM AND RT ESWL Anesthesia Type GENERAL Estimated Blood Loss Estimated blood loss (mL): NONE Specimens/Packing Specimens Removed NONE Packing: NONE BELINDA CARR MD Mar 03, 2020 08:07
--- NOTE | 2020-03-03 08:08 | Discharge Inst-Urology ---
Discharge Inst-Urology Reconcile Patient Problems Problems Reviewed?: Yes Final Diagnosis RT PROXIMAL URETERAL STONE Patient Instructions/Follow Up Plan/Assessment/Instructions Please make appointment to been seen in office in 2 weeks. KUB prior to it KUB on way home Post ESWL instructions Increase oral fluids for 48 hours and then as needed. Diet and Activity as tolerated. If questions or concerns contact your physician Or seek help at emergency department. BELINDA CARR MD Mar 03, 2020 08:08
[2020-03-03] MEDS ORDERED: LACTATED RINGERS 1,000 ML IV PRN (08:44)
[2020-03-03] MEDS ORDERED: cefTRIAXone FOR IV USE 1,000 MG in WATER (STERILE) FOR INJECTION 10 ML IV ONE (08:45)
[2020-03-03] MEDS ORDERED: WATER (STERILE) FOR INJECTION 10 ML ONE (08:48)
[2020-03-03] MEDS ORDERED: cefTRIAXone 1,000 MG IV (ROCEPHIN) VIAL ONE (08:48)
--- NOTE | 2020-03-03 08:54 | Diagnostic Imaging Report ---
REASON FOR EXAM: Right ureteral stone. COMPARISON: 03/01/2020. TECHNIQUE: 2 views of the abdomen FINDINGS: Stable position of the focal calcification along the expected course of the right ureter measuring 7 mm. No new focal calcifications are seen. The bowel gas pattern is nondistended. No large collection of free intraperitoneal air is seen. Scattered small amounts of gas and fecal material are present in the colon. The osseous structures are age-appropriate. IMPRESSION: Unchanged calcification along the expected course of the right ureter measuring 7 mm. Dictated by: Dictated on workstation # [id number]
[2020-03-03] MEDS ORDERED: MIDAZOLAM 2 MG/2 ML (VERSED) VIAL ONE (10:26)
[2020-03-03] MEDS ORDERED: fentaNYL INJECTION 100 MCG/2 ML AMP ONE (10:26)
[2020-03-03] MEDS ORDERED: ONDANSETRON 4 MG/2 ML (SDV) Z0FRAN ONE (10:48)
[2020-03-03] MEDS ORDERED: LIDOCAINE PF 2% 5 ML (XYLOCAINE) VIAL ONE (10:48)
[2020-03-03] MEDS ORDERED: SEVOFLURANE (ULTANE) 15 ML INHAL SOLN ONE (10:48)
[2020-03-03] MEDS ORDERED: FUROSEMIDE 40 MG/4 ML INJ (LASIX) ONE ×2 (10:48→11:07)
[2020-03-03] MEDS ORDERED: KETOROLAC 30 MG/ML VIAL ONE (10:48)
[2020-03-03] MEDS ORDERED: proPOfol 200 MG/20 ML (DIPRIVAN) VIAL IV ONE (10:48)
[2020-03-03] MEDS ORDERED: IOPAMIDOL 61% 30 ML (ISOVUE 300) VIAL ONE (10:55)
[2020-03-03] MEDS ORDERED: fentaNYL INJECTION 100 MCG/2 ML AMP IVP ONE (11:30)
[2020-03-03] MEDS ORDERED: ONDANSETRON 4 MG/2 ML (SDV) Z0FRAN IVP PRN (11:30)
--- NOTE | 2020-03-03 12:10 | NUR ---
PT VOIDED 850 ML HOWARD COLORED URINE THRU STRAINER
[2020-03-03] MEDS ORDERED: NITR-65 PO (13:02)
[2020-03-03] MEDS ORDERED: TRM50T PO (13:04)
[2020-03-03] MEDS ORDERED: TMSL.4C PO (13:04)
--- NOTE | 2020-03-03 13:20 | NUR ---
PT VOIDED 300 ML LIGHT PINK URINE THRU STRAINER
--- NOTE | 2020-03-03 14:16 | Diagnostic Imaging Report ---
INDICATION: Nephrolithiasis, post extracorporal shockwave lithotripsy. TECHNIQUE: Two supine view of the abdomen at 1:19 PM. CORRELATION STUDY: 03/03/2020. FINDINGS: A large amount of overlying bowel gas and stool obscures detail. Previous imaging demonstrated a 7 mm calcification interposed between the L3 and L4 transverse process. This is not visualized. There does appear to be a small calcification over the superior pole of the right kidney. The left renal silhouette and expected course of the ureter are unremarkable. IMPRESSION: The previously noted calcification along the right paraspinal region is not visualized at followup assessment. The examination is compromised by a moderate amount of overlying bowel gas and stool. Dictated by: Dictated on workstation # [id number]
--- NOTE | 2020-03-03 14:23 | Anesthesia-General Post-Op ---
General Patient Condition Mental Status/LOC: Same as Preop Cardiovascular: Satisfactory Nausea/Vomiting: Absent Respiratory: Satisfactory Pain: Controlled Complications: Absent Post Op Complications Complications None Follow Up Care/Instructions Patient Instructions None needed. Anesthesia/Patient Condition Patient Condition Patient was seen after the procedure and he was doing well, no complaints, stable vital signs, no apparent adverse anesthesia problems. DEMETRIA COTTO DO Mar 03, 2020 14:23
--- NOTE | 2020-03-03 17:03 | OPERATIVE REPORT ---
DATE OF SERVICE: 03/03/2020 PREOPERATIVE DIAGNOSIS: Right proximal ureteral stone. POSTOPERATIVE DIAGNOSIS: Right proximal ureteral stone. OPERATION PERFORMED: Cystoscopy with right ureteral stone manipulation, right retrograde urogram and right ESWL. SURGEON: Moncho Carr MD ANESTHESIA: General. COMPLICATIONS: None. DESCRIPTION OF PROCEDURE: Under satisfactory general anesthesia, the patient in lithotomy position, genitalia were prepped and draped in the usual sterile fashion. Cystoscope was introduced under vision. Anterior urethra was normal. The prostate was non-obstructing. Bladder neck was open. The bladder was normal. I went ahead and passed a 6-Greek ureteral catheter into the right ureteral orifice guided fluoroscopically to the level of the stone, I was able to push and flush the stone and all fragments and to back into the kidney and passed the catheter all the way up. I injected contrast. There was some filling defect in the renal pelvis, which was kind of persistent, none on the ureter and good emptying of the ureter around the catheter, so we went ahead and put the patient in supine position. Localized the stone and represented by the filling defect in the renal pelvis and a total of 1500 shocks, we could not see any more filling defect and complete rapid emptying of the whole system. Just to make sure after 1500 shocks with good result, I went ahead and withdrew the catheter and followed the ureter with fluoroscopy to make sure there was no calcification seen at all and there was none all the way down to the L5 and below. I removed the ureteral catheter. The patient received 40 mg of Lasix and 30 mg of Toradol IV at the end of the procedure. He tolerated the procedure and anesthesia well and was sent to recovery room in stable condition. Job ID: [id number] DocumentID: [id number] Dictated Date: 03/03/2020 11:20:13 Outside Installer Apprentice Date: 03/03/2020 17:02:58 Dictated By: MONCHO CARR MD
== END 2020-03-03 13:30 | disposition home or self-care (01) ==
LOC: SDC 07:50
PROVIDERS: ATTEND Urology
DX: N20.1 Calculus of ureter (principal)
CPT/HCPCS: 74018; 87081

== ENCOUNTER → 2020-03-17 | Outpatient (CLI) | payer BC ==
[~2020-03-17] MED LIST changes: +NITR-65 PO
--- NOTE | 2020-03-17 14:23 | Diagnostic Imaging Report ---
INDICATION: Right sided kidney stone. Time of exam 1:23 PM Correlation is made with prior radiograph from 03/03/2020. There is a 6 to 7 mm calcific density right paraspinal location projected between the right L2 and L3 transverse processes. This is concerning for a ureteral calculus. No other radiopaque urinary tract calculi are seen. Bowel gas pattern is unremarkable. IMPRESSION: Right abdominal calcification, perhaps ureteral. This may have migrated from the right kidney since the prior study from 03/03/2020. Dictated by: Dictated on workstation # [id number]
== END ==
LOC: RAD 13:19
PROVIDERS: ATTEND Urology
DX: N20.2 Calculus of kidney with calculus of ureter (principal)
CPT/HCPCS: 74018

== ENCOUNTER 2020-05-28 04:45 | Emergency (ER) | payer BC ==
[~2020-05-28] VITALS: Ht 175 cm; Wt 90.7 kg
[~2020-05-28 04:45] MED LIST changes: +ACHD5005 PO; -HYDR-3812 PO
[2020-05-28 05:04] LABS: BILIRUBIN,URINE NEGATIVE (NEGATIVE); CLARITY,URINE CLOUDY; COLOR,URINE DARK YELLOW; GLUCOSE, URINE (UA) TRACE (NEGATIVE); KETONES,URINE 1+ (NEGATIVE); LEUKOCYTE ESTERASE ,URINE NEGATIVE (NEGATIVE); NITRITE,URINE NEGATIVE (NEGATIVE); PROTEIN,URINE 1+ (NEGATIVE)
[2020-05-28 05:14] LABS: BACTERIA,URINE TRACE /HPF; SQUAMOUS EPITHELIAL CELL,UR 0-2 /HPF; WBC,URINE 0-2 /HPF
[2020-05-28] MEDS ORDERED: KETOROLAC 30 MG/ML VIAL IVP ONE (05:15)
[2020-05-28] MEDS ORDERED: ONDANSETRON 4 MG/2 ML (SDV) Z0FRAN IVP ONE (05:15)
[2020-05-28 05:20] LABS: BASOPHILS % (AUTO) 0 % (0-10); EOSINOPHILS % (AUTO) 0 % (0-10); HEMATOCRIT 47 % (40-54); LYMPHOCYTES # (AUTO) 0.8 10^3/uL (1.0-4.0); LYMPHOCYTES % (AUTO) 6 % (12-44); MEAN CORPUSCULAR HEMOGLOBIN 32 pg (25-34); MEAN CORPUSCULAR HGB CONC 34 g/dL (32-36); MEAN CORPUSCULAR VOLUME 92 fL (80-99); MEAN PLATELET VOLUME 10.4 fL (9.0-12.2); MONOCYTES # (AUTO) 0.9 10^3/uL (0.0-1.0); MONOCYTES % (AUTO) 7 % (0-12); NEUTROPHILS # (AUTO) 11.6 10^3/uL (1.8-7.8); NEUTROPHILS % (AUTO) 86 % (42-75); PLATELET COUNT 213 10^3/uL (130-400); WHITE BLOOD COUNT 13.5 10^3/uL (4.3-11.0)
[2020-05-28] MEDS ORDERED: fentaNYL INJECTION 100 MCG/2 ML AMP IVP ONE (05:30)
[2020-05-28 05:31] LABS: ALBUMIN 4.5 GM/DL (3.2-4.5)
[2020-05-28 05:32] LABS: CALCIUM 9.2 MG/DL (8.5-10.1)
[2020-05-28 05:33] LABS: TOTAL PROTEIN 7.4 GM/DL (6.4-8.2)
[2020-05-28 05:35] LABS: BILIRUBIN,TOTAL 1.1 MG/DL (0.1-1.0)
[2020-05-28 05:37] LABS: CREATININE SERUM 1.34 MG/DL (0.60-1.30)
--- NOTE | 2020-05-28 05:55 | ED GU-Male ---
General Chief Complaint: Abdominal/GI Problems Stated Complaint: POSS KIDNEY STONE Source: patient Exam Limitations: no limitations History of Present Illness Date Seen by Provider: May 28, 2020 Time Seen by Provider: 04:45 Initial Comments Patient presents ER by private conveyance with past 5 hours of right flank and right lower quadrant abdominal pain consistent with his history of kidney stones. He's having a little nausea and some retching and dry heaving but no vomiting. No fevers chills diarrhea constipation hematuria. No abdominal surgeries or scopes. He's had 2 episodes of lithotripsy by Dr. Carr with the most recent one about a month ago. Allergies and Home Medications Allergies Coded Allergies: No Known Drug Allergies (Unverified , 01/07/20) Home Medications Nitrofurantoin Monohyd/M-Cryst 100 Mg Capsule, 1 TAB PO BID Prescribed by: ABDON ASH on 03/03/20 1302 Tamsulosin HCl 0.4 Mg Cap, 0.4 MG PO DAILY Prescribed by: ABDON ASH on 03/03/20 1304 Tramadol HCl 50 Mg Tablet, 50-100 MG PO Q4H PRN for PAIN-MODERATE (5-7) Prescribed by: ABDON ASH on 03/03/20 1304 Patient Home Medication List Home Medication List Reviewed: Yes Review of Systems Review of Systems Constitutional: No chills, No diaphoresis EENTM: No ear pain, No eye pain Respiratory: No cough, No short of breath Cardiovascular: No chest pain, No edema Gastrointestinal: see HPI, abdominal pain; No constipation, No diarrhea; nausea; No vomiting Genitourinary: denies burning, denies discharge, denies dysuria Musculoskeletal: No back pain, No joint pain Skin: No pruritus, No rash Psychiatric/Neurological: Denies Headache, Denies Numbness All Other Systemes Reviewed Negative Unless Noted: Yes Past Udzmfas-Epfljj-Emxpdo Hx Patient Social History Alcohol Use: Denies Use Recreational Drug Use: No Smoking Status: Never a Smoker Type Used: Smokeless Tobacco Recent Foreign Travel: No Contact w/Someone Who Travel: No Recent Hopitalizations: No Physical Abuse: No Sexual Abuse: No Mistreated: No Fear: No Seasonal Allergies Seasonal Allergies: No Past Medical History Surgeries: Yes (LITHOTRIPSY X2) Respiratory: No Currently Using CPAP: No Currently Using BIPAP: No Cardiac: No Neurological: No Genitourinary: Yes Kidney Stones Gastrointestinal: No Musculoskeletal: No Endocrine: No HEENT: No Cancer: No Psychosocial: No Integumentary: No Blood Disorders: No Adverse Reaction/Blood Tranf: No Family Medical History Lung cancer Prostate cancer in father Physical Exam Vital Signs Capillary Refill : Height, Weight, BMI Height: '" Weight: lbs. oz. kg; 31.18 BMI Method: General Appearance: WD/WN, no apparent distress Neck: full range of motion, normal inspection Cardiovascular: normal peripheral pulses, regular rate, rhythm Respiratory: no respiratory distress, no accessory muscle use Gastrointestinal: normal bowel sounds, non tender Back: no vertebral tenderness, CVA tenderness (R) Neurologic/Psychiatric: alert, normal mood/affect, oriented x 3 Progress/Results/Core Measures Suspected Sepsis SIRS Temperature: Pulse: Respiratory Rate: Laboratory Tests 05/28/20 05:05: White Blood Count 13.5H Blood Pressure / Mean: Laboratory Tests 05/28/20 05:05: Creatinine 1.34H, Platelet Count 213, Total Bilirubin 1.1H Results/Orders Lab Results Laboratory Tests Test 05/28/20 04:55 05/28/20 05:05 Range/Units Urine Color DARK YELLOW Urine Clarity CLOUDY Urine pH 5.0 5-9 Urine Specific [place] >=1.030 1.016-1.022 Urine Protein 1+ H NEGATIVE Urine Glucose (UA) TRACE H NEGATIVE Urine Ketones 1+ H NEGATIVE Urine Nitrite NEGATIVE NEGATIVE Urine Bilirubin NEGATIVE NEGATIVE Urine Urobilinogen 0.2 < = 1.0 MG/DL Urine Leukocyte Esterase NEGATIVE NEGATIVE Urine RBC (Auto) 2+ H NEGATIVE Urine RBC 5-10 H /HPF Urine WBC 0-2 /HPF Urine Squamous Epithelial Cells 0-2 /HPF Urine Crystals NONE /LPF Urine Bacteria TRACE /HPF Urine Casts NONE /LPF Urine Mucus MODERATE H /LPF Urine Culture Indicated YES White Blood Count 13.5 H 4.3-11.0 10^3/uL Red Blood Count 5.07 4.30-5.52 10^6/uL Hemoglobin 16.0 13.3-17.7 g/dL Hematocrit 47 40-54 % Mean Corpuscular Volume 92 80-99 fL Mean Corpuscular Hemoglobin 32 25-34 pg Mean Corpuscular Hemoglobin Concent 34 32-36 g/dL Red Cell Distribution Width 12.1 10.0-14.5 % Platelet Count 213 130-400 10^3/uL Mean Platelet Volume 10.4 9.0-12.2 fL Immature Granulocyte % (Auto) 0 % Neutrophils (%) (Auto) 86 H 42-75 % Lymphocytes (%) (Auto) 6 L 12-44 % Monocytes (%) (Auto) 7 0-12 % Eosinophils (%) (Auto) 0 0-10 % Basophils (%) (Auto) 0 0-10 % Neutrophils # (Auto) 11.6 H 1.8-7.8 10^3/uL Lymphocytes # (Auto) 0.8 L 1.0-4.0 10^3/uL Monocytes # (Auto) 0.9 0.0-1.0 10^3/uL Eosinophils # (Auto) 0.0 0.0-0.3 10^3/uL Basophils # (Auto) 0.0 0.0-0.1 10^3/uL Immature Granulocyte # (Auto) 0.0 0.0-0.1 10^3/uL Sodium Level 138 135-145 MMOL/L Potassium Level 4.0 3.6-5.0 MMOL/L Chloride Level 104 98-107 MMOL/L Carbon Dioxide Level 22 21-32 MMOL/L Anion Gap 12 5-14 MMOL/L Blood Urea Nitrogen 25 H 7-18 MG/DL Creatinine 1.34 H 0.60-1.30 MG/DL Estimat Glomerular Filtration Rate 56 BUN/Creatinine Ratio 19 Glucose Level 138 H 70-105 MG/DL Calcium Level 9.2 8.5-10.1 MG/DL Corrected Calcium 8.8 8.5-10.1 MG/DL Total Bilirubin 1.1 H 0.1-1.0 MG/DL Aspartate Amino Transf (AST/SGOT) 17 5-34 U/L Alanine Aminotransferase (ALT/SGPT) 18 0-55 U/L Alkaline Phosphatase 77 40-136 U/L Total Protein 7.4 6.4-8.2 GM/DL Albumin 4.5 3.2-4.5 GM/DL My Orders Orders - ISABELLA JIMENEZ Ua Culture If Indicated (05/28/20 04:48) Ketorolac Injection (Toradol Injection) (05/28/20 05:15) Ondansetron Injection (Zofran Injectio (05/28/20 05:15) Cbc With Automated Diff (05/28/20 05:01) Comprehensive Metabolic Panel (05/28/20 05:01) Ct Abd/Pelvis Wo(Kidney Stone) (05/28/20 05:01) Urine Culture (05/28/20 04:55) Fentanyl Injection (Sublimaze Injection (05/28/20 05:30) Medications Given in ED Current Medications Medications Dose Ordered Sig/Hawk Route Start Time Stop Time Status Last Admin Dose Admin Fentanyl Citrate 50 mcg ONCE ONCE IVP 05/28/20 05:30 05/28/20 05:31 DC 05/28/20 05:31 50 MCG Ketorolac Tromethamine 30 mg ONCE ONCE IVP 05/28/20 05:15 05/28/20 05:16 DC 05/28/20 05:12 30 MG Ondansetron HCl 8 mg ONCE ONCE IVP 05/28/20 05:15 05/28/20 05:16 DC 05/28/20 05:12 8 MG Vital Signs/I&O Capillary Refill : Progress Note : Time: 05:59 Progress Note 30 mg Toradol IV were insufficient to control his pain so 50 g of IV fentanyl were given. Patient appears much more relaxed however states she still feeling some pain. 8 mg Zofran for nausea were given. Plan to have him follow-up with Dr. Carr. Diagnostic Imaging Diagonstic Imaging: Xray Plain Films/CT/US/NM/MRI: abdomen, pelvis Comments 4-6 mm right-sided ureteral calculus with modest fast stranding in the perinephric fat and hydroureter. Reviewed: Reviewed [place] Hawk Study, Reviewed by Me Departure Impression Primary Impression: Right ureteral calculus Disposition: HOME, SELF-CARE Condition: Stable Departure-Patient Inst. Decision time for Depature: 06:02 Referrals: NO,LOCAL PHYSICIAN (PCP) Primary Care Physician BELINDA CARR MD Patient Instructions: Kidney Stones (DC), How to Strain Your Urine Add. Discharge Instructions: Strain your urine to see if you can catch the stone if it passes. Call Dr. Carr, urologist and request a follow-up appointment scheduled as you will probably need help passing the stone. Ondansetron one to 2 tablets every 6 hours as necessary for nausea or vomiting. Hydrocodone one to 2 tablets every 6 hours as necessary for pain. Ibuprofen 800 mg every 8 hours as necessary for pain. Heating pads can be helpful for pain. Flomax one capsule daily to help pass the stone. Drink lots of fluids. Keflex one capsule twice a day for the next week. All discharge instructions reviewed with patient and/or family. Voiced understanding. Scripts Tamsulosin HCl (Flomax) 0.4 Mg Cap 0.4 MG PO DAILY for 7 Days, #7 CAP 0 Refills Prov: ISABELLA JIMENEZ 05/28/20 Ondansetron (Ondansetron Odt) 4 Mg Tab.rapdis 4 MG PO Q6H PRN for NAUSEA/VOMITING, #15 TAB 0 Refills Prov: ISABELLA JIMENEZ 05/28/20 Hydrocodone/Acetaminophen (Hydrocodone-Acetamin 5-325 mg) 1 Each Tablet 1-2 EACH PO Q6H PRN for PAIN-BREAKTHROUGH, #14 TAB 0 Refills Prov: ISABELLA JIMENEZ 05/28/20 Cephalexin (Keflex) 500 Mg Capsule 500 MG PO BID for 7 Days, #14 CAP 0 Refills Prov: ISABELLA JIMENEZ 05/28/20 Copy Copies To 1: BELINDA CARR MD, TITUS J May 28, 2020 05:55
[2020-05-28] MEDS ORDERED: ACHD5005 PO (06:09)
[2020-05-28] MEDS ORDERED: ONDA4TAB11 PO (06:09)
[2020-05-28] MEDS ORDERED: CEPH-507 PO (06:09)
[2020-05-28] MEDS ORDERED: TMSL.4C PO (06:09)
[2020-05-28] MEDS ORDERED: cefTRIAXone FOR IV USE 1,000 MG in WATER (STERILE) FOR INJECTION 10 ML IV ONE (06:15)
[2020-05-28 06:22] VITALS: BP 149/99
--- NOTE | 2020-05-28 07:06 | Diagnostic Imaging Report ---
Clinical indications: Patient with flank pain on the right side and abdominal pain. Exam: CT exam of the abdomen and pelvis is performed without IV or oral contrast using stone protocol. Coronal and sagittal reformatted images were created. Auto Exposure Controls were utilized during the CT exam to meet ALARA standards for radiation dose reduction. Comparisons: CT scan of the abdomen and pelvis performed without contrast dated 12/26/2019. Findings: Visualized lung bases: There is interval development of minimal bibasilar atelectasis. Liver: Stable subcentimeter circumscribed low-density areas scattered in the right lobe of liver and near the falciform ligament again seen. Cysts may be considered. Otherwise liver is unremarkable. Gallbladder: Unremarkable. Pancreas: Unremarkable as visualized. Spleen: Unremarkable as visualized. Adrenal glands: Unremarkable. Kidneys/ ureters: There is an 8 mm stone lodged in the distal right ureter which is roughly 2 cm from the right UVJ. This correlates to the stone in the proximal right ureter/UPJ region seen on prior study. Again noted right periureteral and perinephric fat stranding. There is stable mild right hydroureteronephrosis. Otherwise the right kidney is unremarkable. The left kidney is unremarkable with no stone or mass. There is no left hydronephrosis. Aorta: Unremarkable as visualized. Intraabdominal/ retroperitoneal contents: Unremarkable. Intestines: Unremarkable as visualized. Appendix: Unremarkable. Bladder: The bladder is decompressed and otherwise unremarkable. Pelvic organs: Unremarkable as visualized. Extra abdominal/ pelvis regions: Stable small bilateral fat-containing inguinal hernias. Abdominal wall: Unremarkable. Bones: There is mild lower lumbar spine facet arthropathy. Impression: 1: There is an 8 mm stone lodged in the distal right ureter which is 2 cm from the right UVJ. This represents the stone previously seen in the proximal right ureter/UPJ region. There is mild right hydroureteronephrosis and right periureteral and perinephric fat stranding. 2: The remainder of this exam shows no significant interval change compared to the prior study of comparison. I agree with [employer] report Dictated by: Dictated on workstation # [id number]
== END 2020-05-28 06:27 | disposition home or self-care (01) ==
LOC: EDUNIT# 04:45 → ER 04:46
DX: N20.1 Calculus of ureter (principal); Z80.1 Family history of malignant neoplasm of trachea, bronchus and lung; Z80.42 Family history of malignant neoplasm of prostate
CPT/HCPCS: 36415; 74176; 80053; 81000; 85025; 87088

== ENCOUNTER → 2020-05-31 | Outpatient (CLI) | payer BC ==
[~2020-05-31] MED LIST changes: +CEPH-507 PO; +PHEN-640 PO
--- NOTE | 2020-05-31 14:25 | Diagnostic Imaging Report ---
INDICATION: Abdominal pain. COMPARISON: CT dated 05/28/2020. FINDINGS: A single frontal supine radiographic view of the abdomen was obtained. The small bowel loops are nondistended. There is no large collection of free intraperitoneal air. Extraosseous calcification is noted projecting over the right hemipelvis and measures 6 to 7 mm in diameter. This is felt to correspond to a distal ureteral calculus seen on the recent CT. No unexpected radiopaque foreign bodies are identified. The osseous structures show no acute abnormalities. IMPRESSION: 1. Extraosseous calcification, consistent with a distal ureteral calculus. 2. Nonobstructed small bowel gas pattern. Dictated by: Dictated on workstation # [id number]
== END ==
LOC: RAD 13:47
PROVIDERS: ATTEND Urology
DX: N20.1 Calculus of ureter (principal); M61.9 Calcification and ossification of muscle, unspecified; Z20.828 Contact with and (suspected) exposure to other viral communicable diseases
CPT/HCPCS: 74018

== ENCOUNTER 2020-06-01 06:35 | Day surgery (SDC) | payer BC ==
[~2020-06-01] VITALS: Ht 176.5 cm; Wt 95.7 kg
[2020-06-01] VITALS (11 sets, daily range): BP systolic 84–129; BP diastolic 58–97
[~2020-06-01 06:35] MED LIST changes: -PHEN-640 PO
[2020-06-01] MEDS ORDERED: CATHETER FLUSH 10 ML SYR IV PRN (07:15)
[2020-06-01] MEDS ORDERED: cefTRIAXone FOR IV USE 1,000 MG in WATER (STERILE) FOR INJECTION 10 ML IV ONE (07:15)
--- NOTE | 2020-06-01 07:16 | Progress Note-Pre Operative ---
Pre-Operative Progress Note H&P Reviewed The H&P was reviewed, patient examined and no changes noted. Date Seen by Provider: Jun 01, 2020 Time Seen by Provider: 07:16 Date H&P Reviewed: Jun 01, 2020 Time H&P Reviewed: 07:16 Pre-Operative Diagnosis: RT DISTAL URETERAL STONE BELINDA CARR MD Jun 01, 2020 07:16
--- NOTE | 2020-06-01 07:22 | Progress Note-Post Operative ---
Post-Operative Progess Note Surgeon (s)/Revenue Coordinator (s) Surgeon BELINDA CARR MD Revenue Coordinator: NONE Pre-Operative Diagnosis RT DISTAL URETERAL STONE Post-Operative Diagnosis SAME Procedure & Operative Findings Date of Procedure 06/01/20 Procedure Performed/Findings CYSTOSCOPY, RT URETEROSCOPY WITH STONE LITHOTRIPSY Anesthesia Type GENERAL Estimated Blood Loss Estimated blood loss (mL): NONE Specimens/Packing Specimens Removed NONE Packing: NONE BELINDA CARR MD Jun 01, 2020 07:22
--- NOTE | 2020-06-01 07:24 | Discharge Inst-Urology ---
Discharge Inst-Urology Reconcile Patient Problems Problems Reviewed?: Yes Final Diagnosis RT DISTAL URETERAL STONE Patient Instructions/Follow Up Plan/Assessment/Instructions Please make appointment to been seen in office in 2 weeks. KUB prior to it Strain all urine and save any fragments and bring to office appointment Increase oral fluids for 48 hours and then as needed. Diet and Activity as tolerated. If questions or concerns contact your physician Or seek help at emergency department. BELINDA CARR MD Jun 01, 2020 07:24
[2020-06-01] MEDS ORDERED: LACTATED RINGERS 1,000 ML IV PRN (08:03)
[2020-06-01] MEDS ORDERED: proPOfol 200 MG/20 ML (DIPRIVAN) VIAL IV ONE ×2 (08:10→09:09)
[2020-06-01] MEDS ORDERED: ONDANSETRON 4 MG/2 ML (SDV) Z0FRAN ONE (08:10)
[2020-06-01] MEDS ORDERED: fentaNYL INJECTION 100 MCG/2 ML AMP ONE (08:10)
[2020-06-01] MEDS ORDERED: LIDOCAINE PF 2% 5 ML (XYLOCAINE) VIAL ONE (08:10)
[2020-06-01] MEDS ORDERED: MIDAZOLAM 2 MG/2 ML (VERSED) VIAL ONE (08:10)
--- NOTE | 2020-06-01 08:13 | Diagnostic Imaging Report ---
INDICATION: Right ureteral stone. TECHNIQUE: Single supine view of the abdomen 7:10 AM CORRELATION STUDY: 05/31/2020 FINDINGS: Either 2 adjacent or bilobed stone in the right hemipelvis of approximately 7 mm again demonstrated overall appears generally stable as to its position and location. No definitive calcification over the renal silhouettes or expected course left ureter. Overlying bowel gas pattern with a mild/moderate severity fecal retention. IMPRESSION: 1. No appreciable change in positioning of the known distal right ureteral calculus. Dictated by: Dictated on workstation # [id number]
--- NOTE | 2020-06-01 09:55 | NUR ---
TO AMB SURG FROM PAR PER CART. ALERT, RATES PELVIC/BLADDER DISCOMFORT 1-2. PO FLUIDS PROVIDED.
[2020-06-01] MEDS ORDERED: PHENAZOPYRIDINE 100 MG (PYRIDIUM) TABLET ONE (10:14)
[2020-06-01] MEDS ORDERED: PHENAZOPYRIDINE 100 MG (PYRIDIUM) TABLET PO ONE (10:15)
--- NOTE | 2020-06-01 10:17 | NUR ---
RATES PELVIC DISCOMFORT 2. PYRIDIUM 200 MG GIVEN PO FOR PAIN CONTROL.
--- NOTE | 2020-06-01 11:15 | NUR ---
RATES PELVIC/BLADDER DISCOMFORT 1. HAS VOIDED CLEAR, TONY COLORED URINE WITHOUT PROBLEM AND PASSED FINE STONE FRAGMENTS. URINE STRAINED AND FRAGMENTS TRANSFERRED TO SPECIMEN CONTAINER FOR PT TO COLLECT ADDITIONAL FRAGMENTS TO TAKE TO FOLLOW UP APPOINTMENT WITH DR CARR. PT STATES HE UNDERSTANDS HE WILL NEED TO COLLECT AND STRAIN URINE FOR NEXT WEEK. STATES HE IS READY FOR DISMISSAL.
--- NOTE | 2020-06-01 12:50 | Anesthesia-General Post-Op ---
General Patient Condition Mental Status/LOC: Same as Preop Cardiovascular: Satisfactory Nausea/Vomiting: Absent Respiratory: Satisfactory Pain: Controlled Complications: Absent Post Op Complications Complications None Follow Up Care/Instructions Patient Instructions None needed. Anesthesia/Patient Condition Patient Condition Patient is doing well, no complaints, stable vital signs, no apparent adverse anesthesia problems. No complications reported per nursing. CHIKIS GUAN CRNA Jun 01, 2020 12:50
--- NOTE | 2020-06-01 13:40 | OPERATIVE REPORT ---
DATE OF SERVICE: 06/01/2020 PREOPERATIVE DIAGNOSIS: Right distal ureteral stone. POSTOPERATIVE DIAGNOSIS: Right distal ureteral stone. OPERATION PERFORMED: Right ureteroscopy with stone lithotripsy. SURGEON: Moncho Carr MD ANESTHESIA: General. COMPLICATIONS: None. DESCRIPTION OF PROCEDURE: Under satisfactory general anesthesia, the patient in lithotomy position, genitalia were prepped and draped in the usual sterile fashion. Cystoscope was introduced under vision. The anterior urethra was normal. The prostate was nonobstructing, but there was a median bar. The bladder was inspected revealed mild trabeculation. Ureteric orifices were normal with clear efflux, very sluggish on the right side. Using the foroblique lens, I dilated the right ureteral orifice intramural portion to accommodate a 6.9 [place] semi-rigid ureteroscope. The stone was visualized and lithotripsy was carried with the lithoclast. The outer shell was yellowish and breaking easy. However, the nucleus was hard and black and it took quite a bit of power and shocks until I broke it up completely and very small fragments, some of them flew down into the bladder. I went beyond the stone, there was no more fragments, no stones, and no harm to the ureter. I removed the ureteroscope, reinserted the cystoscope to empty the bladder. The patient tolerated the procedure and anesthesia well and was sent to recovery room in stable condition. PLAN: See him back in 2 weeks and work him up for stone prevention. Job ID: [id number] DocumentID: [id number] Dictated Date: 06/01/2020 09:14:33 Curb Attendant Date: 06/01/2020 13:38:49 Dictated By: MONCHO CARR MD
[2020-06-01] MEDS ORDERED: PHEN-640 PO (13:47)
== END 2020-06-01 11:30 | disposition home or self-care (01) ==
LOC: SDC 06:35
PROVIDERS: ATTEND Urology
DX: N20.1 Calculus of ureter (principal); Z20.828 Contact with and (suspected) exposure to other viral communicable diseases
CPT/HCPCS: 52353; 74018; 76000; 87081; U0002; 87635

== ENCOUNTER 2023-03-23 01:47 | Emergency (ER) | payer BC ==
[~2023-03-23] VITALS: Ht 170 cm; Wt 90.7 kg
[~2023-03-23 01:47] MED LIST changes: +PHEN-640 PO; -SULF1TAB35 PO; +SULF1TAB38 PO
[2023-03-23 02:00] VITALS: BP 167/104
[2023-03-23] MEDS ORDERED: morphine INJ 10 MG/ML 1ML (SYR OR VIAL) IVP STA (02:13)
[2023-03-23] MEDS ORDERED: KETOROLAC INJ 15 MG/ML VIAL IVP ONE (02:15)
[2023-03-23] MEDS ORDERED: NS IV 1000 ML 1,000 ML IV STA (02:16)
--- NOTE | 2023-03-23 02:16 | ED Abdominal Pain ---
General Chief Complaint: Abdominal/GI Problems Stated Complaint: POSS KIDNEY STONE Nursing Triage Note: patient states thinks he has a kidney stone. states hx of stones. patient states yesterday urinating blood, tonight very painful. Source of Information: Patient Exam Limitations: No Limitations History of Present Illness Date Seen by Provider: Mar 23, 2023 Time Seen by Provider: 02:04 Initial Comments 57-year-old male presents to the emergency department today thinking he has a kidney stone. He has left lower quadrant abdominal pain that started yesterday it is described as a sharp stabbing pain without radiation. No aggravating or alleviating factors. He did have some blood in his urine at the outset of his symptoms but none now. He initially took hydrocodone, 7.5 mg, which completely relieved his pain however it came back and now the pain medication is not working. He denies any fevers or chills. No dysuria. No changes in his ruby wels. He had unsuccessful lithotripsy x2 and ultimately had to have retrieval of his last stone about 6 months to a year ago. All other systems reviewed and negative except documented per HPI. Voice recognition software was used to help create this chart Allergies and Home Medications Allergies Coded Allergies: No Known Drug Allergies (Unverified , 01/07/20) Patient Home Medication List Home Medication List Reviewed: Yes Cephalexin (Keflex) 500 Mg Capsule, 500 MG PO BID Prescribed by: ISABELLA JIMENEZ on 05/28/20 06 Hydrocodone/Acetaminophen (Hydrocodone-Acetamin 5-325 mg) 1 Each Tablet, 1-2 EACH PO Q6H PRN for PAIN-BREAKTHROUGH Prescribed by: ISABELLA JIMENEZ on 05/28/20 06 Hydrocodone/Acetaminophen (Hydrocodone-Acetamin 7.5-325) 7.5 Mg-325 Mg Tablet, 1 EACH PO Q4H PRN for PAIN-BREAKTHROUGH Prescribed by: ELIDIA FRANCO MD on 03/23/23 0306 Ketorolac Tromethamine (Ketorolac Tromethamine) 10 Mg Tablet, 10 MG PO TID Prescribed by: ELIDIA FRANCO MD on 03/23/23 030 Ondansetron (Ondansetron Odt) 4 Mg Tab.rapdis, 4 MG PO Q6H PRN for NAUSEA/VOMITING Prescribed by: ISABELLA JIMENEZ on 05/28/20 0609 Phenazopyridine HCl (Pyridium) 200 Mg Tablet, 1 TAB PO TID Prescribed by: NICKIE ESPINAL on 06/01/20 1347 Tamsulosin HCl (Flomax) 0.4 Mg Cap, 0.4 MG PO DAILY Prescribed by: ISABELLA JIMENEZ on 05/28/20 0609 Tamsulosin HCl (Flomax) 0.4 Mg Cap, 0.4 MG PO DAILY Prescribed by: ELIDIA FRANCO MD on 03/23/23 0307 Tramadol HCl (Tramadol HCl) 50 Mg Tablet, 50-100 MG PO Q4H PRN for PAIN-MODERATE (5-7) Prescribed by: ABDON ASH on 03/03/20 1304 Review of Systems Review of Systems Constitutional: see HPI Past Tehbggk-Cloehe-Clpuxd Hx Patient Social History Tobacco Use?: No Use of E-Cig and/or Vaping dev: No Substance use?: No Alcohol Use?: No Seasonal Allergies Seasonal Allergies: No Past Medical History Surgeries: Yes (LITHOTRIPSY X2) Respiratory: No Currently Using CPAP: No Currently Using BIPAP: No Cardiac: No Neurological: No Genitourinary: Yes Kidney Stones Gastrointestinal: No Musculoskeletal: No Endocrine: No HEENT: No Cancer: No Psychosocial: No Integumentary: No Blood Disorders: No Adverse Reaction/Blood Tranf: No Family Medical History Lung cancer Prostate cancer in father Physical Exam Vital Signs Vital Signs - First Documented 03/23/23 02:00 Temp 36.4 Pulse 78 Resp 20 B/P (MAP) 167/104 (125) Pulse Ox 96 O2 Delivery Room Air Capillary Refill : Less Than 3 Seconds Height/Weight/BMI Height: '" Weight: lbs. oz. kg; 31.00 BMI Method: General Appearance: WD/WN, no apparent distress HEENT: normal ENT inspection, pharynx normal Neck: non-tender, full range of motion, supple Respiratory: chest non-tender, lungs clear, normal breath sounds, no respiratory distress, no accessory muscle use Cardiovascular: regular rate, rhythm, no murmur Gastrointestinal: normal bowel sounds, non tender, soft, no organomegaly Back: normal inspection, no CVA tenderness, no vertebral tenderness Neurologic/Psychiatric: alert, oriented x 3 Skin: normal color, warm/dry Progress/Results/Core Measures Results/Orders Lab Results Laboratory Tests Test 03/23/23 02:10 Range/Units White Blood Count 16.4 H 4.3-11.0 10^3/uL Red Blood Count 5.03 4.30-5.52 10^6/uL Hemoglobin 15.9 13.3-17.7 g/dL Hematocrit 47 40-54 % Mean Corpuscular Volume 92 80-99 fL Mean Corpuscular Hemoglobin 32 25-34 pg Mean Corpuscular Hemoglobin Concent 34 32-36 g/dL Red Cell Distribution Width 12.4 10.0-14.5 % Platelet Count 193 130-400 10^3/uL Mean Platelet Volume 9.8 9.0-12.2 fL Immature Granulocyte % (Auto) 0 % Neutrophils (%) (Auto) 87 H 42-75 % Lymphocytes (%) (Auto) 5 L 12-44 % Monocytes (%) (Auto) 7 0-12 % Eosinophils (%) (Auto) 0 0-10 % Basophils (%) (Auto) 0 0-10 % Neutrophils # (Auto) 14.3 H 1.8-7.8 10^3/uL Lymphocytes # (Auto) 0.8 L 1.0-4.0 10^3/uL Monocytes # (Auto) 1.2 H 0.0-1.0 10^3/uL Eosinophils # (Auto) 0.0 0.0-0.3 10^3/uL Basophils # (Auto) 0.1 0.0-0.1 10^3/uL Immature Granulocyte # (Auto) 0.1 0.0-0.1 10^3/uL Neutrophils % (Manual) 88 % Lymphocytes % (Manual) 7 % Monocytes % (Manual) 5 % Blood Morphology Comment NORMAL Urine Color YELLOW Urine Clarity CLEAR Urine pH 5.0 5-9 Urine Specific Anita >=1.030 1.016-1.022 Urine Protein 1+ H NEGATIVE Urine Glucose (UA) NEGATIVE NEGATIVE Urine Ketones 2+ H NEGATIVE Urine Nitrite NEGATIVE NEGATIVE Urine Bilirubin 1+ H NEGATIVE Urine Urobilinogen .2 < = 1.0 MG/DL Urine Leukocyte Esterase NEGATIVE NEGATIVE Urine RBC (Auto) 2+ H NEGATIVE Urine RBC 5-10 H /HPF Urine WBC NONE /HPF Urine Squamous Epithelial Cells /HPF Urine Crystals NONE /LPF Urine Bacteria NEGATIVE /HPF Urine Casts NONE /LPF Urine Mucus MODERATE H /LPF Urine Culture Indicated NO Sodium Level 137 135-145 MMOL/L Potassium Level 3.4 L 3.6-5.0 MMOL/L Chloride Level 102 98-107 MMOL/L Carbon Dioxide Level 22 21-32 MMOL/L Anion Gap 13 5-14 MMOL/L Blood Urea Nitrogen 20 H 7-18 MG/DL Creatinine 1.32 H 0.60-1.30 MG/DL Estimat Glomerular Filtration Rate 63 BUN/Creatinine Ratio 15 Glucose Level 124 H 70-105 MG/DL Calcium Level 8.9 8.5-10.1 MG/DL Corrected Calcium 8.7 8.5-10.1 MG/DL Total Bilirubin 1.1 H 0.1-1.0 MG/DL Aspartate Amino Transf (AST/SGOT) 16 5-34 U/L Alanine Aminotransferase (ALT/SGPT) 16 0-55 U/L Alkaline Phosphatase 80 40-136 U/L Total Protein 7.1 6.4-8.2 GM/DL Albumin 4.3 3.2-4.5 GM/DL My Orders Orders - ELIDIA FRANCO DO Cbc With Automated Diff (03/23/23 02:13) Comprehensive Metabolic Panel (03/23/23 02:13) Ua Culture If Indicated (03/23/23 02:13) Ct Abdomen/Pelvis Wo (03/23/23 02:13) Morphine Injection (Morphine Injection (03/23/23 02:13) Ketorolac Injection (Ketorolac Injection (03/23/23 02:15) Ns Iv 1000 Ml (Ns Iv 1000 Ml) (03/23/23 02:16) Manual Differential (03/23/23 02:10) Glycopyrrolate Injection (Glycopyrrolate (03/23/23 03:15) Tamsulosin Capsule (Flomax Capsule) (03/23/23 18:00) Hydrocodone/Apap 10/325 Tablet (Hydrocod (03/23/23 03:15) Tamsulosin Capsule (Flomax Capsule) (03/23/23 03:21) Medications Given in ED Current Medications Medications Dose Ordered Sig/Hawk Route Start Time Stop Time Status Last Admin Dose Admin Acetaminophen/ Hydrocodone Bitart 1 ea ONCE ONCE PO 03/23/23 03:15 03/23/23 03:16 DC 03/23/23 03:37 1 EA Glycopyrrolate 0.4 mg ONCE ONCE IV 03/23/23 03:15 03/23/23 03:16 DC 03/23/23 03:38 0.4 MG Ketorolac Tromethamine 15 mg ONCE ONCE IVP 03/23/23 02:15 03/23/23 02:16 DC 03/23/23 02:18 15 MG Vital Signs/I&O 03/23/23 02:00 Temp 36.4 Pulse 78 Resp 20 B/P (MAP) 167/104 (125) Pulse Ox 96 O2 Delivery Room Air Blood Pressure Mean: 125 Departure Communication (Admissions) Patient is hemodynamically stable. Pain is controlled here in the emergency department with combination of IV and oral medications. He is given Flomax, IV fluids as well. He will be discharged and referred to urology. He is comfortable agreeable current plan of care. Of inability reviewed CT imaging showing inflammation of the left kidney as well as around 6 mm stone with hydroureter. No other obvious acute findings. Impression Primary Impression: Ureterolithiasis Additional Impression: Renal colic on left side Disposition: 01 HOME, SELF-CARE Condition: Stable Departure-Patient Inst. Referrals: NO,LOCAL PHYSICIAN (PCP) Primary Care Physician SPENCER MUNGUIA DO Patient Instructions: Kidney stones in adults Add. Discharge Instructions: Take Toradol as prescribed as needed. Do not take any other anti-inflammatory medications while you are taking this. Take hydrocodone as needed. Do not drive or make important decisions while taking this he may make you drowsy. You may monitor his stool softeners while taking it as it can cause constipation as well. Please call Dr. Richmond's office to schedule follow-up appointment. Return to the emergency department immediately if you develop fevers, severe pain is not controlled by your medications or if your symptoms change in any way concerning to you. Take the Flomax daily as prescribed. increase your fluids. All discharge instructions reviewed with patient and/or family. Voiced understanding. Scripts Tamsulosin HCl (Flomax) 0.4 Mg Cap 0.4 MG PO DAILY for 5 Days, #5 CAP Prov: ELIDIA FRANCO DO 03/23/23 Hydrocodone/Acetaminophen (Hydrocodone-Acetamin 7.5-325) 7.5 Mg-325 Mg Tablet 1 EACH PO Q4H PRN for PAIN-BREAKTHROUGH for 3 Days, #12 TAB Prov: ELIDIA FRANCO DO 03/23/23 Ketorolac Tromethamine (Ketorolac Tromethamine) 10 Mg Tablet 10 MG PO TID for Pain for 3 Days, #9 TAB Prov: ELIDIA FRANCO DO 03/23/23 ELIDIA FRANCO DO Mar 23, 2023 02:16
[2023-03-23 02:20] LABS: BASOPHILS # (AUTO) 0.1 10^3/uL (0.0-0.1); BASOPHILS % (AUTO) 0 % (0-10); EOSINOPHILS % (AUTO) 0 % (0-10); HEMATOCRIT 47 % (40-54); HEMOGLOBIN 15.9 g/dL (13.3-17.7); LYMPHOCYTES # (AUTO) 0.8 10^3/uL (1.0-4.0); LYMPHOCYTES % (AUTO) 5 % (12-44); MEAN CORPUSCULAR HEMOGLOBIN 32 pg (25-34); MEAN CORPUSCULAR HGB CONC 34 g/dL (32-36); MEAN CORPUSCULAR VOLUME 92 fL (80-99); MEAN PLATELET VOLUME 9.8 fL (9.0-12.2); MONOCYTES # (AUTO) 1.2 10^3/uL (0.0-1.0); MONOCYTES % (AUTO) 7 % (0-12); NEUTROPHILS # (AUTO) 14.3 10^3/uL (1.8-7.8); NEUTROPHILS % (AUTO) 87 % (42-75); PLATELET COUNT 193 10^3/uL (130-400); WHITE BLOOD COUNT 16.4 10^3/uL (4.3-11.0)
[2023-03-23 02:34] LABS: CLARITY,URINE CLEAR; COLOR,URINE YELLOW; PROTEIN,URINE 1+ (NEGATIVE)
[2023-03-23 02:35] LABS: BACTERIA,URINE NEGATIVE /HPF; BILIRUBIN,URINE 1+ (NEGATIVE); GLUCOSE, URINE (UA) NEGATIVE (NEGATIVE); KETONES,URINE 2+ (NEGATIVE); LEUKOCYTE ESTERASE ,URINE NEGATIVE (NEGATIVE); NITRITE,URINE NEGATIVE (NEGATIVE)
[2023-03-23 02:37] LABS: LYMPHOCYTES % (MANUAL) 7 %; MONOCYTES % (MANUAL) 5 %; NEUTROPHILS % (MANUAL) 88 %; RBC MORPH NORMAL
[2023-03-23 02:42] LABS: ALBUMIN 4.3 GM/DL (3.2-4.5); BILIRUBIN,TOTAL 1.1 MG/DL (0.1-1.0); CALCIUM 8.9 MG/DL (8.5-10.1); CREATININE SERUM 1.32 MG/DL (0.60-1.30); POTASSIUM 3.4 MMOL/L (3.6-5.0); TOTAL PROTEIN 7.1 GM/DL (6.4-8.2)
[2023-03-23] MEDS ORDERED: HYDR-3817 PO ×2 (03:06→12:13)
[2023-03-23] MEDS ORDERED: KETO10TA PO ×2 (03:06→12:14)
[2023-03-23] MEDS ORDERED: TMSL.4C PO ×2 (03:07→12:13)
[2023-03-23] MEDS ORDERED: HYDROcodone/ACETAMINOPHEN 10/325 TABLET PO ONE (03:15)
[2023-03-23] MEDS ORDERED: GLYCOPYRROLATE INJ 0.2 MG/ML 2 ML VIAL IV ONE (03:15)
[2023-03-23] MEDS ORDERED: TAMSULOSIN 0.4 MG (FLOMAX) CAP PO ONE (03:21)
--- NOTE | 2023-03-23 05:28 | Diagnostic Imaging Report ---
PROCEDURE: CT abdomen and pelvis without contrast. TECHNIQUE: Multiple contiguous axial images were obtained through the abdomen and pelvis without the use of intravenous contrast. Auto Exposure Controls were utilized during the CT exam to meet ALARA standards for radiation dose reduction. INDICATION: Left flank pain Lung bases are clear. Liver is unremarkable. Gallbladder is normal. Pancreas is normal. Spleen is not enlarged. Adrenals are normal. Right kidney is normal. There is hydronephrosis of left kidney with perinephric edema. There is a 1 mm calculus in lower pole calyx of left kidney. There is a 4 mm calculus left proximal ureter causing obstruction. Small bowel is not dilated. Colon appears normal. There is no evidence for appendicitis. There is no intraperitoneal free air or free fluid. Urinary bladder is decompressed. IMPRESSION: Left nephrolithiasis. Obstructing calculus left proximal ureter causing hydronephrosis of left kidney. Dictated by: Dictated on workstation # [id number]
[2023-03-23] MEDS ORDERED: TAMSULOSIN 0.4 MG (FLOMAX) CAP PO SCH (18:00)
== END 2023-03-23 03:40 | disposition home or self-care (01) ==
LOC: EDUNIT# 01:47 → ER 01:51
DX: N13.2 Hydronephrosis with renal and ureteral calculous obstruction (principal); Z87.442 Personal history of urinary calculi
CPT/HCPCS: 36415; 74176; 80053; 81000; 85007; 85027